=== PATIENT | female | born 1975 | race Hispanic/Latino ===

== ENCOUNTER 2019-03-17 22:01 | Emergency (ER) | payer OTHER ==
[~2019-03-17] VITALS: Ht 152.4 cm; Wt 74.8 kg
--- OUTSIDE RECORDS SUMMARY | 2019-03-17 22:04 | XMS REPORT ---
Author Author [facility] Address Unknown Phone Unavailable Care Team Providers Care Career Orientation Teacher Name Role Phone Unavailable Unavailable Payers Payer Name Policy Type Policy Number Effective Date Expiration Date Problems This patient has no known problems. Allergies, Adverse Reactions, Alerts Allergy Name Allergy Type Status Severity Reaction(s) Onset Date Inactive Date Treating Clinician Comments No Known Allergies DA Active U 2019-03-06 00:00:00 No Known Allergies DA Active U 2019-02-15 00:00:00 No Known Allergies DA Active U 2019-01-16 00:00:00 No Known Allergies DA Active U 2018-11-24 00:00:00 No Known Allergies DA Active U 2018-10-24 00:00:00 No Known Allergies DA Active U 2018-10-21 00:00:00 No Known Allergies DA Active U 2017-05-13 00:00:00 Medications This patient has no known medications. Results Test Description Test Time Test Comments Text Results Atomic Results Result Comments BASIC METABOLIC PANEL 2019-03-13 04:27:00 SODIUM (test code=NA) 141 mEq/L 134-147 POTASSIUM (test code=K) 3.2 mEq/L 3.4-5.0 CHLORIDE (test code=CL) 109 mEq/L 100-108 CARBON DIOXIDE (test code=CO2) 26 mEq/L 21-33 ANION GAP (test code=GAP) 9 0-20 GLUCOSE (test code=GLU) 79 mg/dL 70-110 BLOOD UREA NITROGEN (test code=BUN) 4 mg/dL 7-18 GLOMERULAR FILTRATION RATE (test code=GFR) 134.7 95-105 Units of measure=ml/min/1.73 m2 CREATININE (test code=CREAT) 0.5 mg/dL 0.6-1.3 CALCIUM (test code=CA) 7.6 mg/dL 8.0-10.5 CBC W/AUTO [id number] 04:08:00* Test Item Value Reference Range Comments WHITE BLOOD CELL (test code=WBC) 3.76 x10 3/uL 4.5-11.0 RED BLOOD CELL (test code=RBC) 3.17 x10 6/uL 3.54-5.02 HEMOGLOBIN (test code=HGB) 8.2 g/dL 11.0-15.0 HEMATOCRIT (test code=HCT) 26.0 % 33.0-45.0 MEAN CELL VOLUME (test code=MCV) 82.0 fL 81.0-99.0 MEAN CELL HGB (test code=MCH) 25.9 pg 27.0-33.0 MEAN CELL HGB CONCETRATION (test code=MCHC) 31.5 g/dL 33.0-37.0 RED CELL DISTRIBUTION WIDTH CV (test code=RDW) 16.2 % 11.5-14.5 RED CELL DISTRIBUTION WIDTH SD (test code=RDW-SD) 49.1 fL 37.0-54.0 PLATELET COUNT (test code=PLT) 372 x10 3/uL 150-400 MEAN PLATELET VOLUME (test code=MPV) 9.5 fL 7.0-9.0 NEUTROPHIL % (test code=NT%) 62.0 % 56.0-77.0 IMMATURE GRANULOCYTE % (test code=IG%) 0.5 % 0.0-2.0 LYMPHOCYTE % (test code=LY%) 24.2 % 14.0-32.0 MONOCYTE % (test code=MO%) 6.4 % 4.8-9.0 EOSINOPHIL % (test code=EO%) 6.6 % 0.3-3.7 BASOPHIL % (test code=BA%) 0.3 % 0.0-2.0 NUCLEATED RBC % (test code=NRBC%) 0.0 % 0-0 NEUTROPHIL # (test code=NT#) 2.33 x10 3/uL 2.0-7.6 IMMATURE GRANULOCYTE # (test code=IG#) 0.02 x10 3/uL 0.00-0.03 LYMPHOCYTE # (test code=LY#) 0.91 x10 3/uL 1.0-3.8 MONOCYTE # (test code=MO#) 0.24 x10 3/uL 0.1-0.8 EOSINOPHIL # (test code=EO#) 0.25 x10 3/uL 0.0-0.2 BASOPHIL # (test code=BA#) 0.01 x10 3/uL 0.0-0.2 NUCLEATED RBC # (test code=NRBC#) 0.00 x10 3/uL 0.0-0.1 MANUAL DIFF REQUIRED (test code=MDIFF) NO BASIC METABOLIC [id number] 07:43:00* Test Item Value Reference Range Comments SODIUM (test code=NA) 140 mEq/L 134-147 POTASSIUM (test code=K) 3.5 mEq/L 3.4-5.0 CHLORIDE (test code=CL) 109 mEq/L 100-108 CARBON DIOXIDE (test code=CO2) 25 mEq/L 21-33 ANION GAP (test code=GAP) 10 0-20 GLUCOSE (test code=GLU) 77 mg/dL 70-110 BLOOD UREA NITROGEN (test code=BUN) 5 mg/dL 7-18 GLOMERULAR FILTRATION RATE (test code=GFR) 134.7 95-105 Units of measure=ml/min/1.73 m2 CREATININE (test code=CREAT) 0.5 mg/dL 0.6-1.3 CALCIUM (test code=CA) 7.7 mg/dL 8.0-10.5 CBC W/AUTO [id number] 07:27:00* Test Item Value Reference Range Comments WHITE BLOOD CELL (test code=WBC) 4.22 x10 3/uL 4.5-11.0 RED BLOOD CELL (test code=RBC) 3.34 x10 6/uL 3.54-5.02 HEMOGLOBIN (test code=HGB) 8.9 g/dL 11.0-15.0 HEMATOCRIT (test code=HCT) 27.8 % 33.0-45.0 MEAN CELL VOLUME (test code=MCV) 83.2 fL 81.0-99.0 MEAN CELL HGB (test code=MCH) 26.6 pg 27.0-33.0 MEAN CELL HGB CONCETRATION (test code=MCHC) 32.0 g/dL 33.0-37.0 RED CELL DISTRIBUTION WIDTH CV (test code=RDW) 16.7 % 11.5-14.5 RED CELL DISTRIBUTION WIDTH SD (test code=RDW-SD) 50.0 fL 37.0-54.0 PLATELET COUNT (test code=PLT) 436 x10 3/uL 150-400 MEAN PLATELET VOLUME (test code=MPV) 10.1 fL 7.0-9.0 NEUTROPHIL % (test code=NT%) 56.4 % 56.0-77.0 IMMATURE GRANULOCYTE % (test code=IG%) 0.7 % 0.0-2.0 LYMPHOCYTE % (test code=LY%) 30.6 % 14.0-32.0 MONOCYTE % (test code=MO%) 5.0 % 4.8-9.0 EOSINOPHIL % (test code=EO%) 7.1 % 0.3-3.7 BASOPHIL % (test code=BA%) 0.2 % 0.0-2.0 NUCLEATED RBC % (test code=NRBC%) 0.0 % 0-0 NEUTROPHIL # (test code=NT#) 2.38 x10 3/uL 2.0-7.6 IMMATURE GRANULOCYTE # (test code=IG#) 0.03 x10 3/uL 0.00-0.03 LYMPHOCYTE # (test code=LY#) 1.29 x10 3/uL 1.0-3.8 MONOCYTE # (test code=MO#) 0.21 x10 3/uL 0.1-0.8 EOSINOPHIL # (test code=EO#) 0.30 x10 3/uL 0.0-0.2 BASOPHIL # (test code=BA#) 0.01 x10 3/uL 0.0-0.2 NUCLEATED RBC # (test code=NRBC#) 0.00 x10 3/uL 0.0-0.1 MANUAL DIFF REQUIRED (test code=MDIFF) NO - CT ABD PELVIS [id number] 18:26:00 Name: WALLACE GLORIA [facility] : 1975 Age/S: 43 / F [address] [place] [address] Unit #: [id number] Loc: [place] [address] Phys: Sierra Tomas RECORD SEARCHER Acct: [id number] Dis Date: Status: ADM IN PHONE #: [phone] Exam Date: 03/11/2019 173 FAX #: [phone] Reason: SEVERE ABD PAIN EXAMS: CPT CODE: [id number] CT ABD PELVIS W/CONT 68251 CT ABDOMEN AND PELVIS WITH CONTRAST INDICATION: Severe abdominal pain, pyelonephritis. TECHNIQUE: 100 mL Isovue- 300 Intravenous contrast was administered followed by CT imaging of the abdomen and pelvis with axial, coronal and sagittal reconstructions. Radiation DLP 537 mGy-cm. COMPARISONS: CT abdomen pelvis 03/06/2019, 01/16/2019, 02/21/2018 FINDINGS: There is no acute osseous fracture or dislocation. There is no organized fluid collection or mass in the soft tissues. There are nonspecific bilateral inguinal lymph nodes, the largest measures 3 x 1.3 cm in the left groin. The aorta reveals no aneurysm or acute process. The inferior vena cava reveals no acute process. The lung bases reveal no acute process. There is no acute hepatic process. There is hypodensity in the left hepatic lobe near the falciform ligament. This could be due to focal fatty infiltration or 3rd inflow differential perfusion. There is no suspicious hepatic mass. The gallbladder is montse gically absent. The pancreas reveals no acute process. The spleen reveals no acute process. The adrenal glands reveal no acute process or mass. There is a 7 mm nonobstructing right carolyn al calculus. There is no evidence of pyelonephritis or hydronephrosis. The urinary bladder reveals no acute process. There is no acute reproductive structure abnormality. There are surgical clips of the fal lopian tubes. There is no intra-abdominal free fluid. There is no lymphadenopathy. There is no intra-abdominal free gas. There are nondilated fluid levels in the colon suggesting diarrhea. PAGE 1 Signed Report (CONTINUED) Name: WALLACE GLORIA [facility] : 1975 Age/ S: 43 / F [address] [place] [address] Unit #: [id number] Loc: [place] [address] Phys: Sierra Tomas RECORD SEARCHER Acct: [id number] Dis Date: Status: ADM IN PHONE #: [phone] Exam Date: 03/11/2019 1730 FAX #: [phone] Reason: SEVERE ABD PAIN EXAMS: CPT CODE: [id number] CT ABD PELVIS W/CONT 47354 <Continued> There is no bowel perforation or bowel obstruction. The appendix is surgically absent. IMPRESSION: 1. There are nondilated fluid levels in the colon suggesting diarrhea. There is no bowel perforation or bowel obstruction. 2. There is a 7 mm nonobstructing right renal calculus. There is no evidence of pyelonephritis or hydronephrosis. 3. There are nonspecific mildly prominent inguinal lymph nodes, the largest measures 3 x 1.3 cm in the left groin. These are increased compared to 2018. These are likely reactive but a lymphoproliferative process is not entirely excluded. at 1826 Reported and signed by: Aayush Carrizales D.O. CC: Sierra Tomas NP; Dakotah Curiel MD; Sudarshan Barron III, MD Technologist:Malachi Lorenzo RT(R)(CT) CTDI: DLP: Trnscb Date/Time: 03/11/2019 (1825) [email or web address] Orig Print D/T: S: 03/11/2019 (1828) PAGE 2 Signed Report HEPATIC FUNCTION [id number] 16:40:00* Test Item Value Reference Range Comments TOTAL PROTEIN (test code=PROT) 6.5 g/dL 6.4-8.2 ALBUMIN (test code=ALB) 2.30 g/dL 3.4-5.0 BILIRUBIN TOTAL (test code=BILT) 0.30 mg/dL 0.0-1.0 BILIRUBIN DIRECT (test code=BILD) < 0.10 MG/DL 0.0-0.30 BILIRUBIN INDIRECT (test code=BILIND) 0.20 MG/DL SGOT/AST (test code=AST) 43 IUnit/L 15-37 SGPT/ALT (test code=ALT) 41 IUnit/L 15-65 ALKALINE PHOSPHATASE TOTAL (test code=ALKP) 193 IUnit/L 20-125 BASIC METABOLIC [id number] 08:49:00* Test Item Value Reference Range Comments SODIUM (test code=NA) 139 mEq/L 134-147 POTASSIUM (test code=K) 3.8 mEq/L 3.4-5.0 CHLORIDE (test code=CL) 110 mEq/L 100-108 CARBON DIOXIDE (test code=CO2) 22 mEq/L 21-33 ANION GAP (test code=GAP) 11 0-20 GLUCOSE (test code=GLU) 77 mg/dL 70-110 BLOOD UREA NITROGEN (test code=BUN) 5 mg/dL 7-18 GLOMERULAR FILTRATION RATE (test code=GFR) 109.1 95-105 Units of measure=ml/min/1.73 m2 CREATININE (test code=CREAT) 0.6 mg/dL 0.6-1.3 CALCIUM (test code=CA) 7.9 mg/dL 8.0-10.5 HGB [id number] 07:11:00* Test Item Value Reference Range Comments HEMOGLOBIN (test code=HGB) 8.8 g/dL 11.0-15.0 HEMATOCRIT (test code=HCT) 28.2 % 33.0-45.0 CBC W/AUTO [id number] 06:19:00* Test Item Value Reference Range Comments WHITE BLOOD CELL (test code=WBC) 6.55 x10 3/uL 4.5-11.0 RED BLOOD CELL (test code=RBC) 2.12 x10 6/uL 3.54-5.02 HEMOGLOBIN (test code=HGB) 5.6 g/dL 11.0-15.0 HEMATOCRIT (test code=HCT) 17.7 % 33.0-45.0 MEAN CELL VOLUME (test code=MCV) 83.5 fL 81.0-99.0 MEAN CELL HGB (test code=MCH) 26.4 pg 27.0-33.0 MEAN CELL HGB CONCETRATION (test code=MCHC) 31.6 g/dL 33.0-37.0 RED CELL DISTRIBUTION WIDTH CV (test code=RDW) 16.8 % 11.5-14.5 RED CELL DISTRIBUTION WIDTH SD (test code=RDW-SD) 51.3 fL 37.0-54.0 PLATELET COUNT (test code=PLT) 443 x10 3/uL 150-400 MEAN PLATELET VOLUME (test code=MPV) 9.8 fL 7.0-9.0 NEUTROPHIL % (test code=NT%) 64.8 % 56.0-77.0 IMMATURE GRANULOCYTE % (test code=IG%) 0.5 % 0.0-2.0 LYMPHOCYTE % (test code=LY%) 22.6 % 14.0-32.0 MONOCYTE % (test code=MO%) 5.5 % 4.8-9.0 EOSINOPHIL % (test code=EO%) 6.3 % 0.3-3.7 BASOPHIL % (test code=BA%) 0.3 % 0.0-2.0 NUCLEATED RBC % (test code=NRBC%) 0.0 % 0-0 NEUTROPHIL # (test code=NT#) 4.25 x10 3/uL 2.0-7.6 IMMATURE GRANULOCYTE # (test code=IG#) 0.03 x10 3/uL 0.00-0.03 LYMPHOCYTE # (test code=LY#) 1.48 x10 3/uL 1.0-3.8 MONOCYTE # (test code=MO#) 0.36 x10 3/uL 0.1-0.8 EOSINOPHIL # (test code=EO#) 0.41 x10 3/uL 0.0-0.2 BASOPHIL # (test code=BA#) 0.02 x10 3/uL 0.0-0.2 NUCLEATED RBC # (test code=NRBC#) 0.00 x10 3/uL 0.0-0.1 MANUAL DIFF REQUIRED (test code=MDIFF) NO - DUP VEIN UNI/[id number] 13:36:00 Name: WALLACE GLORIA [facility] : 1975 Age/S: 43 / F [address] [place] [address] Unit #: [id number] Loc: [place] [address] Phys: Blaze Velásquez MD Acct: [id number] Dis Date: Status: ADM IN PHONE #: [phone] Exam Date: 03/10/2019 1253 FAX #: [phone] Reason: EDEMA EXAMS: CPT CODE: [id number] DUP VEIN UNI/LTD 47294 Patient Name: WALLACE GLORIA : 1975; Age: 43 years y/o Female MR: [id number] Study: - DUP VEIN UNI/LTD 03/10/2019 2:20 PM Ordering Physician: Blaze Velásquez MD Clinical Indication: EDEMA Comparison: None FINDINGS: Compression duplex ultrasound of the right upper extremity was performed from the subclavicular region through the antecubital fossa. The ipsilateral right internal jugular vein was also evaluated. The visualized right upper extremity veins are patent and compressible without evidence of intraluminal thrombus. Satisfactory spontaneous and augmented flow is demonstrated in the visualized segments. The ulnar vein is not well seen. IMPRESSION: Negative right upper extremity venous Doppler without evidence of deep vein thrombosis. SL: [id number] at 1336 Reported and signed by: Nino Cervantes M.D. CC: Blaze Velásquez MD; Cristian Schaefer NP; Dakotah Curiel MD; Sudarshan Barron III, MD Technologist: Linda Perdue RDMS(O B)(AB) Trnscb Date/Time: 03/10/2019 (1520) [email or web address] Orig Print D/T: S: 03/10/2019 (2723) Probe: PAGE 1 Signed Report - DUP VEIN [id number] 13:31:00 Name: WALLACE GLORIA [facility] : 1975 Age/S: 43 / F [address] [place] [address] Unit #: [id number] Loc: [place] [address] Phys: Nahomy Troy NP Acct: [id number] Dis Date: Status: ADM IN PHONE #: [phone] Exam Date: 03/10/2019 1253 FAX #: [phone] Reason: recent surgery, sob EXAMS: CPT CODE: [id number] DUP VEIN CHASITY 00248 EXAMINATION: Bilateral lower extremity venous Doppler March 10, 2019. CLINICAL HISTORY: Recent surgery, shortness of breath. COMPARISON: None FINDINGS: Sonographic evaluation of the bilateral lower extremities was performed from the common femoral vein through the popliteal vein using grayscale, color Doppler, and spectral analysis. The examination demonstrates normal compressibility, flow, respiratory variation, and response to augmentation throughout. Visualized posterior tibial calf veins appear normal. IMPRESSION: No sonographic evidence of deep venous thrombosis in either thigh. at 1331 Reported and signed by: Rad Carrero M.D. CC: Dakotah Curiel MD; Sudarshan Barron III, MD; Nahomy Troy NP Technologist: Linda Perdue RDMS(OB)(AB) Trnscb Date/Time: 03/10/2019 (1331) Fani Orig Print D/T: S: 03/10/2019 (8947) Probe: PAGE 1 Signed Report - DUP EXTRACRANIAL CHASITY 2019-03-10 13:27:00 Name: WALLACE GLORIA [facility] : 1975 Age/S: 43 / F [address] [place] [address] Blvd Unit #: [id number] Loc: [place] [address] Phys: Sierra Tomas NP Acct: [id number] Dis Date: Status: ADM IN PHONE #: [phone] Exam Date: 03/10/2019 1253 FAX #: [phone] Reason: r/o carotid stenosis pt with dizziness EXAMS: CPT CODE: [id number] DUP EXTRACRANIAL CHASITY 39553 STUDY: - DUP EXTRACRANIAL CHASITY 03/10/2019 10:44 AM Ordering Physician: Sierra Tomas NP Patient Name: AWLLACE GLORIA MR: [id number] : 1975; Age: 43 years y/o Female Clinical Indication: r/o carotid stenosis pt with dizziness Comparison: None TECHNIQUE: [place]-scale, color Doppler and spectral Doppler of the carotid arteries was performed. Any reported ICA stenoses indirectly reference the distal internal carotid diameter as the denominator for the stenosis measurement, utilizing consensus panel criteria. FINDINGS: RIGHT CAROTID Grayscale images:Mild plaque ICA PSV: 82.7 cm/sec CCA PSV: 94.3 cm/sec ICA/CCA PSV RATIO:0.9 Vertebral flow: Antegrade. External carotid: Patent. LEFT CAROTID SYSTEM Grayscale images: Mild plaque ICA PSV: 112.5 cm/sec CCA PSV: 130.8 cm/sec ICA/CCA PSV RATIO:1.0 Vertebral flow: Antegrade. External carotid: Patent. IMPRESSION: RIGHT: ICA stenosis <50% by velocity criteria. LEFT: ICA stenosis <50% by velocity criteria. PAGE 1 Signed Report (CONTINUED) Name: WALLACE GLORIA [facility] : 1975 Age/S: 43 / F [address] [facility] Unit #: [id number] [place]: [place] [address] Phys: Sierra Tomas NP Acct: [id number] Dis Date: Status: ADM IN PHONE #: [phone] Exam Date: 03/10/2019 1253 FAX #: [phone] Reason: r/o carotid stenosis pt with dizziness EXAMS: CPT CODE: [id number] DUP EXTRACRANIAL CHASITY 16533 <Continued> Consensus panel Doppler US criteria for diagnosis of ICA stenosis: Stenosis (%) ICA PSV (cm/sec) ICA/CCA ratio ------ <50 <125 <2.0 50-69 125-230 2.0-4.0 >70 but less than >230 >4.0 near occlusion Near occlusion High, low, or Variable undetectable SL: [id number] at 1327 Reported and signed by: Nino Cervantes M.D. CC: Sierra Tomas NP; Dakotah Curiel MD; Sudarshan Barron III, MD Technologist: Linda Perdue RDMS(OB)(AB) Trnscb Date/Time: 03/10/2019 (1327) [id number] Orig Print D/T: S: 03/10/2019 (1088) Probe: PAGE 2 Signed Report - CTA CHEST FOR [id number] 19:18:00 Name: WALLACE GLORIA [facility] : 1975 Age/S: 43 / F [address] [facility] Unit #: [id number] Loc: [place] [address] Phys: Nahomy Troy RECORD SEARCHER Acct: [id number] Dis Date: Status: ADM IN PHONE #: [phone] Exam Date: 03/09/20191829 FAX #: [phone] Reason: sob, recent knee surgery EXAMS: CPT CODE: [id number] [place] [address] PROCEDURE: CTA CHEST INDICATION: Shortness of breath, recent knee surgery COMPARISON: None. TECHNIQUE: CTA of the pulmonary arteries was performed with 100 ml Isovue 300 intravenous contrast. Multiplanar and 3-D MIP angiographic reconstructions are reviewed. CT imaging performed at this location utilizes radiation dose optimization techniques which include one or more of the following: - Automated exposure control -Adjustment of the mA and/or kV according to patient size -Use of iterative reconstruction technique CT Radiation Dose DLP 694 mGy-cm FINDINGS: PULMONARY ARTERIES: Normal enhancement without intraluminal filling defect. MEDIASTINUM: The mediastinal contents are unremarkable. No adenopathy. HEART: The cardiac chambers are unremarkable. No pericardial effusion. No significant coronary artery calcification VASCULAR STRUCTURES: The thoracic aorta and great vessels are unremarkable. The superior vena cava is unremarkable. LUNGS: There is minimal linear atelectasis at the posterior right upper lobe. No acute lung infiltrate or pleural fluid. UPPER ABDOMEN: Survey of viscera may be limited by early phase of contrast enhancement. Previous cholecystectomy. No acute abnormality MUSCULOSKELETAL: The skeleton is intact. Prominent left axillary lymph node is 14 mm in short axis dimension dominant left axillary lymph node is 15 mm in diameter IMPRESSION: 1. No CT evidence for pulmonary embolus. 2. Bilateral axillary adenopathy is nonspecific in etiology by CT. PAGE 1 Signed Report (CONTINUED) [facility] 1975 Age[facility]S: 43 / F [address] [place] [address] Unit #: [id number] Loc: [place] [address] Phys : Nahomy Troy RECORD SEARCHER Acct: [id number] Dis Date: Status: ADM IN PHONE #: [phone] Exam Date: 03/09/2019 183 FAX #: [phone] Reason: sob, recent knee surgery EXAMS: CPT CODE: [id number] [place] [address] <Continued> SL: SO at 1918 Reported and signed by: Raman oLuis M.D. CC: Dakotah Curiel MD; Sudarshan Barron III, MD; Nahomy Troy NP Technologist:Yariel Corcoran, RT(R)(CT) CTDI: DLP: Trnscb Date/Time: 03/09/2019 (1917) Richie Orig Print D/T: S: 03/09/2019 (1920) PAGE 2 Signed Report CBC W/AUTO [id number] 14:33:00* Test Item Value Reference Range Comments WHITE BLOOD CELL (test code=WBC) 5.04 x10 3/uL 4.5-11.0 RED BLOOD CELL (test code=RBC) 3.36 x10 6/uL 3.54-5.02 HEMOGLOBIN (test code=HGB) 8.9 g/dL 11.0-15.0 HEMATOCRIT (test code=HCT) 27.7 % 33.0-45.0 MEAN CELL VOLUME (test code=MCV) 82.4 fL 81.0-99.0 MEAN CELL HGB (test code=MCH) 26.5 pg 27.0-33.0 MEAN CELL HGB CONCETRATION (test code=MCHC) 32.1 g/dL 33.0-37.0 RED CELL DISTRIBUTION WIDTH CV (test code=RDW) 16.5 % 11.5-14.5 RED CELL DISTRIBUTION WIDTH SD (test code=RDW-SD) 49.3 fL 37.0-54.0 PLATELET COUNT (test code=PLT) 427 x10 3/uL 150-400 MEAN PLATELET VOLUME (test code=MPV) 9.8 fL 7.0-9.0 NEUTROPHIL % (test code=NT%) 71.0 % 56.0-77.0 IMMATURE GRANULOCYTE % (test code=IG%) 0.6 % 0.0-2.0 LYMPHOCYTE % (test code=LY%) 20.2 % 14.0-32.0 MONOCYTE % (test code=MO%) 3.0 % 4.8-9.0 EOSINOPHIL % (test code=EO%) 5.0 % 0.3-3.7 BASOPHIL % (test code=BA%) 0.2 % 0.0-2.0 NUCLEATED RBC % (test code=NRBC%) 0.0 % 0-0 NEUTROPHIL # (test code=NT#) 3.58 x10 3/uL 2.0-7.6 IMMATURE GRANULOCYTE # (test code=IG#) 0.03 x10 3/uL 0.00-0.03 LYMPHOCYTE # (test code=LY#) 1.02 x10 3/uL 1.0-3.8 MONOCYTE # (test code=MO#) 0.15 x10 3/uL 0.1-0.8 EOSINOPHIL # (test code=EO#) 0.25 x10 3/uL 0.0-0.2 BASOPHIL # (test code=BA#) 0.01 x10 3/uL 0.0-0.2 NUCLEATED RBC # (test code=NRBC#) 0.00 x10 3/uL 0.0-0.1 MANUAL DIFF REQUIRED (test code=MDIFF) NO SLIDE REVIEWED, CONSISTENT WITH AUTO DIFF. [id number] 14:05:00* Test Item Value Reference Range Comments D-DIMER (test code=DDIMER) 5578 ng/mlFEU <=500 THROMBOSIS AND/OR PULMONARY EMBOLISM AND THE CLINICAL CUT- OFF VALUE FOR EXCLUSION (500 ng/mL FEU) OF THESE CONDITIONSIS VALIDATED BY THE BIOMEDICAL ENGINEERING SUPERVISOR OF THE METHOD. A NEGATIVE D-DIMER RESULT WHEN COMBINED WITH A CLINICALASSESSMENT OF LOW PRETEST PROBABILITY HAS BEEN SHOWN TO HAVEA HIGH NEGATIVE PREDICTIVE VALUE OF DVT OR PE. D-DIMER VALUES >500 ng/mL FEU ARE NOT DIAGNOSTIC FOR DVT, PEor DIC WITHOUT OTHER CONFIRMATORY TESTS AND APPROPRIATECLINICAL EUALUATIONS. BASIC METABOLIC [id number] 13:43:00* Test Item Value Reference Range Comments SODIUM (test code=NA) 138 mEq/L 134-147 POTASSIUM (test code=K) 3.0 mEq/L 3.4-5.0 CHLORIDE (test code=CL) 107 mEq/L 100-108 CARBON DIOXIDE (test code=CO2) 23 mEq/L 21-33 ANION GAP (test code=GAP) 11 0-20 GLUCOSE (test code=GLU) 92 mg/dL 70-110 BLOOD UREA NITROGEN (test code=BUN) 4 mg/dL 7-18 GLOMERULAR FILTRATION RATE (test code=GFR) 109.1 95-105 Units of measure=ml/min/1.73 m2 CREATININE (test code=CREAT) 0.6 mg/dL 0.6-1.3 CALCIUM (test code=CA) 7.6 mg/dL 8.0-10.5 [id number] 13:43:00* Test Item Value Reference Range Comments TROPONIN-I (test code=TROPI) < 0.015 ng/mL 0.000-0.045 Negative: <=0.045 Positive: >=0.046 Correlation with serial results, other cardiac markers andclinical findings is necessary to determine the clinicalsignificance of this result. Results using different methodologies should not be comparedto one another as quantitative results may vary by method. CBC W/AUTO [id number] 13:42:00* Test Item Value Reference Range Comments WHITE BLOOD CELL (test code=WBC) 5.04 x10 3/uL 4.5-11.0 RED BLOOD CELL (test code=RBC) 3.36 x10 6/uL 3.54-5.02 HEMOGLOBIN (test code=HGB) 8.9 g/dL 11.0-15.0 HEMATOCRIT (test code=HCT) 27.7 % 33.0-45.0 MEAN CELL VOLUME (test code=MCV) 82.4 fL 81.0-99.0 MEAN CELL HGB (test code=MCH) 26.5 pg 27.0-33.0 MEAN CELL HGB CONCETRATION (test code=MCHC) 32.1 g/dL 33.0-37.0 RED CELL DISTRIBUTION WIDTH CV (test code=RDW) 16.5 % 11.5-14.5 RED CELL DISTRIBUTION WIDTH SD (test code=RDW-SD) 49.3 fL 37.0-54.0 PLATELET COUNT (test code=PLT) 427 x10 3/uL 150-400 MEAN PLATELET VOLUME (test code=MPV) 9.8 fL 7.0-9.0 LYMPHOCYTE % (test code=LY%) % 14.0-32.0 MANUAL DIFF REQUIRED (test code=MDIFF) - XR CHEST 1 [id number] 11:36:00 FAX: Sierra Tomas NP [phone] [place]: St: ADM FAX: Dakotah Jung I [phone] FAX: Sudarshan Narayanan III [phone] Name: [facility] : 1975 Age/S: 43/F [address] [place] [address] Unit #: [id number] [facility] [place] [address] Phys: Sierra Tomas NP Acct: [id number] Dis Date: Status: ADM IN ONE #: [phone] Exam Date: 03/09/2019 1133 FAX #: [phone] Reason: cough/fever EXAMS: CPT CODE: [id number] XR CHEST 1 V [id number] CHEST 1 VIEW: 03/09/2019 COMPARISON: February 15, 2019 CLINICAL HISTORY: cough/fever FINDINGS: The cardiovascular silhouette is normal in s ize. No infiltrates or pulmonary edema is present. There is no pneumothorax. Surgical clips noted in the right upper quadrant of the abdomen. IMPRESSION: No acute pulmonary disease. Electronically Signed by Anthony Red on at 113 Reported and signed by: Malachi Camacho CC: Sierra Tomas NP; Dakotah Curiel MD; Sudarshan Barron III, MD Technologist: RT Joelle(R) Trnscrd Date/Time/By: 03/09/2019 (0037) : By: [email or web address] Orig Print D/T: S: ([id number]) PAGE 1 Signed Rep ort COMPREHENSIVE METABOLIC [id number] 22:05:00* Test Item Value Reference Range Comments SODIUM (test code=NA) 134 mEq/L 134-147 POTASSIUM (test code=K) 3.9 mEq/L 3.4-5.0 CHLORIDE (test code=CL) 101 mEq/L 100-108 CARBON DIOXIDE (test code=CO2) 22 mEq/L 21-33 ANION GAP (test code=GAP) 15 0-20 GLUCOSE (test code=GLU) 63 mg/dL 70-110 BLOOD UREA NITROGEN (test code=BUN) 11 mg/dL 7-18 GLOMERULAR FILTRATION RATE (test code=GFR) 109.1 95-105 Units of measure=ml/min/1.73 m2 CREATININE (test code=CREAT) 0.6 mg/dL 0.6-1.3 TOTAL PROTEIN (test code=PROT) 9.4 g/dL 6.4-8.2 ALBUMIN (test code=ALB) 3.60 g/dL 3.4-5.0 CALCIUM (test code=CA) 9.3 mg/dL 8.0-10.5 BILIRUBIN TOTAL (test code=BILT) 0.40 mg/dL 0.0-1.0 SGOT/AST (test code=AST) 48 IUnit/L 15-37 SGPT/ALT (test code=ALT) 28 IUnit/L 15-65 ALKALINE PHOSPHATASE TOTAL (test code=ALKP) 157 IUnit/L 20-125 [id number] 22:05:00* Test Item Value Reference Range Comments LIPASE (test code=LIP) 362 IUnit/L 73-393 COMPREHENSIVE METABOLIC [id number] 22:03:00* Test Item Value Reference Range Comments SODIUM (test code=NA) 134 mEq/L 134-147 POTASSIUM (test code=K) 3.9 mEq/L 3.4-5.0 CHLORIDE (test code=CL) 101 mEq/L 100-108 CARBON DIOXIDE (test code=CO2) 22 mEq/L 21-33 ANION GAP (test code=GAP) 15 0-20 GLUCOSE (test code=GLU) 63 mg/dL 70-110 BLOOD UREA NITROGEN (test code=BUN) 11 mg/dL 7-18 GLOMERULAR FILTRATION RATE (test code=GFR) 109.1 95-105 Units of measure=ml/min/1.73 m2 CREATININE (test code=CREAT) 0.6 mg/dL 0.6-1.3 TOTAL PROTEIN (test code=PROT) g/dL 6.4-8.2 ALBUMIN (test code=ALB) 3.60 g/dL 3.4-5.0 CALCIUM (test code=CA) 9.3 mg/dL 8.0-10.5 BILIRUBIN TOTAL (test code=BILT) mg/dL 0.0-1.0 SGOT/AST (test code=AST) 48 IUnit/L 15-37 SGPT/ALT (test code=ALT) 28 IUnit/L 15-65 ALKALINE PHOSPHATASE TOTAL (test code=ALKP) IUnit/L 20-125 [id number] 22:03:00* Test Item Value Reference Range Comments LIPASE (test code=LIP) 362 IUnit/L 73-393 URINALYSIS [id number] 22:00:00* Test Item Value Reference Range Comments UA COLOR (test code=COLU) YELLOW YEL/STRAW UA APPEARANCE (test code=APPU) SL CLOUDY CLEAR UA GLUCOSE DIPSTICK (test code=DGLUU) NEGATIVE NEGATIVE UA BILIRUBIN DIPSTICK (test code=BILU) NEGATIVE NEGATIVE UA KETONE DIPSTICK (test code=KETU) 2+ NEGATIVE UA SPECIFIC GRAVITY (test code=SGU) 1.019 1.005-1.030 UA BLOOD DIPSTICK (test code=MARIAM) NEGATIVE NEGATIVE UA PH DIPSTICK (test code=DANITZA) 6.0 5.0-7.0 UA PROTEIN DIPSTICK (test code=PROU) NEGATIVE NEGATIVE UA UROBILINIOGEN DIPSTICK (test code=URO) 0.2 mg/dL 0.2-1.0 UA NITRITE DIPSTICK (test code=SHARRON) NEGATIVE NEGATIVE UA LEUKOCYTE ESTERASE DIPSTICK (test code=LEUU) 2+ NEGATIVE UA WBC (test code=WBCU) 21-50 WBC/HPF 0-3 UA RBC (test code=RBCU) 0-3 RBC/HPF 0-3 UA BACTERIA (test code=BACU) 1+ /HPF NONE SEEN UA SQUAMOUS CELLS (test code=SQU) 6-10 /HPF NONE SEEN UA HYALINE CAST (test code=HYALU) 3-5 /LPF NONE SEEN UA MUCUS (test code=MUCU) 1+ /LPF NONE SEEN COMMENTS: Clean CatchCBC W/AUTO [id number] 21:54:00* Test Item Value Reference Range Comments WHITE BLOOD CELL (test code=WBC) 5.03 x10 3/uL 4.5-11.0 RED BLOOD CELL (test code=RBC) 4.15 x10 6/uL 3.54-5.02 HEMOGLOBIN (test code=HGB) 10.9 g/dL 11.0-15.0 HEMATOCRIT (test code=HCT) 34.7 % 33.0-45.0 MEAN CELL VOLUME (test code=MCV) 83.6 fL 81.0-99.0 MEAN CELL HGB (test code=MCH) 26.3 pg 27.0-33.0 MEAN CELL HGB CONCETRATION (test code=MCHC) 31.4 g/dL 33.0-37.0 RED CELL DISTRIBUTION WIDTH CV (test code=RDW) 16.1 % 11.5-14.5 RED CELL DISTRIBUTION WIDTH SD (test code=RDW-SD) 48.3 fL 37.0-54.0 PLATELET COUNT (test code=PLT) 544 x10 3/uL 150-400 MEAN PLATELET VOLUME (test code=MPV) 9.3 fL 7.0-9.0 NEUTROPHIL % (test code=NT%) 68.9 % 56.0-77.0 IMMATURE GRANULOCYTE % (test code=IG%) 0.6 % 0.0-2.0 LYMPHOCYTE % (test code=LY%) 22.5 % 14.0-32.0 MONOCYTE % (test code=MO%) 5.2 % 4.8-9.0 EOSINOPHIL % (test code=EO%) 2.4 % 0.3-3.7 BASOPHIL % (test code=BA%) 0.4 % 0.0-2.0 NUCLEATED RBC % (test code=NRBC%) 0.0 % 0-0 NEUTROPHIL # (test code=NT#) 3.47 x10 3/uL 2.0-7.6 IMMATURE GRANULOCYTE # (test code=IG#) 0.03 x10 3/uL 0.00-0.03 LYMPHOCYTE # (test code=LY#) 1.13 x10 3/uL 1.0-3.8 MONOCYTE # (test code=MO#) 0.26 x10 3/uL 0.1-0.8 EOSINOPHIL # (test code=EO#) 0.12 x10 3/uL 0.0-0.2 BASOPHIL # (test code=BA#) 0.02 x10 3/uL 0.0-0.2 NUCLEATED RBC # (test code=NRBC#) 0.00 x10 3/uL 0.0-0.1 MANUAL DIFF REQUIRED (test code=MDIFF) NO - CT ABD PELVIS W/O [id number] 21:14:00 Name: [facility] : 1975 Age/S: 43 / F [address] [place] [address] Unit #: [id number] Loc: [place] [address] Phys: Abbi Mills MD Acct: [id number] Dis Date: Status: REG ER PHONE #: [phone] Exam Date: 03/06/20192057 FAX #: [phone] Reason: llq abd pain EXAMS: CPT CODE: [id number] CT ABD PELVIS W/O CONT 90766 CT abdomen pelvis without contrast: Multiplanar helical imaging acquired diaphragm to pubic symphysis without oral or IV contrast. CT imaging performed at this location utilizes radiation dose optimization techniques which include one or more of the following: -Automated exposure control -Adjustment of the mA and/or kV according to patient size -Use of iterative reconstruction technique CT Radiation Dose DLP 615 mGy-cm. COMPARISON: 01/16/2019. HISTORY: Left lower quadrant abdominal pain, nausea and vomiting, painful urination. FINDINGS: The lung bases are clear. The gallbladder has been removed. No focal lesion in the liver or spleen. Biliary ducts are not dilated. Gallbladder, adrenal glands and abdominal aorta unremarkable. Punctate 1 mm nonobstructing upper pole stone left kidney. 6 mm mid to upper pole stone right kidney. No hydronephrosis or perinephric inflammation on either side. No stone in either ureter. Tubal ligation clips are noted. Uterus and adnexal regions unremarkable. Large and small bowel loops are normal caliber without ob struction or inflammation. The appendix is normal. No ascites. No ventr al or inguinal hernia. Review on bone window shows no acute bony p athology. No vertebral compression. IMPRESSION: 1 . Bilateral nonobstructing nephrolithiasis. 2. Cholecystectomy, tubal ligation clips present. SL: EGСветланаH at 2114 Reported and signed by: Lance Barnhart M.D. PAGE 1 Signed Report (CONTINUED) Name: [facility] : 1975 Age/S: 43 / F [address] [place] [address] Unit #: [id number] Loc: [place] [address] Phys: Abbi Mills MD Acct: [id number] Dis Date: Status: REG ER PHONE #: [phone] Exam Date: 03/06/20192057 FAX #: [phone] Reason: llq abd pain EXAMS: CPT CODE: [id number] CT ABD PELVIS W/O CONT 74271 <Continued> CC: Abbi Milsl MD; Sudarshan Barron III, MD Technologist:Aisha Louis RT(R)(CT) CTDI: DLP: Trnscb Date/Time: 03/06/2019 (2113) t.SDR.ETG Orig Print D/T: S: 03/06/2019 (2116) PAGE 2 Signed Report CBC W/AUTO [id number] 08:17:00* Test Item Value Reference Range Comments WHITE BLOOD CELL (test code=WBC) 4.92 x10 3/uL 4.5-11.0 RED BLOOD CELL (test code=RBC) 3.18 x10 6/uL 3.54-5.02 HEMOGLOBIN (test code=HGB) 8.4 g/dL 11.0-15.0 HEMATOCRIT (test code=HCT) 26.9 % 33.0-45.0 MEAN CELL VOLUME (test code=MCV) 84.6 fL 81.0-99.0 MEAN CELL HGB (test code=MCH) 26.4 pg 27.0-33.0 MEAN CELL HGB CONCETRATION (test code=MCHC) 31.2 g/dL 33.0-37.0 RED CELL DISTRIBUTION WIDTH CV (test code=RDW) 15.8 % 11.5-14.5 RED CELL DISTRIBUTION WIDTH SD (test code=RDW-SD) 49.4 fL 37.0-54.0 PLATELET COUNT (test code=PLT) 337 x10 3/uL 150-400 MEAN PLATELET VOLUME (test code=MPV) 9.5 fL 7.0-9.0 NEUTROPHIL % (test code=NT%) 58.3 % 56.0-77.0 IMMATURE GRANULOCYTE % (test code=IG%) 0.6 % 0.0-2.0 LYMPHOCYTE % (test code=LY%) 29.7 % 14.0-32.0 MONOCYTE % (test code=MO%) 6.7 % 4.8-9.0 EOSINOPHIL % (test code=EO%) 4.3 % 0.3-3.7 BASOPHIL % (test code=BA%) 0.4 % 0.0-2.0 NUCLEATED RBC % (test code=NRBC%) 0.0 % 0-0 NEUTROPHIL # (test code=NT#) 2.87 x10 3/uL 2.0-7.6 IMMATURE GRANULOCYTE # (test code=IG#) 0.03 x10 3/uL 0.00-0.03 LYMPHOCYTE # (test code=LY#) 1.46 x10 3/uL 1.0-3.8 MONOCYTE # (test code=MO#) 0.33 x10 3/uL 0.1-0.8 EOSINOPHIL # (test code=EO#) 0.21 x10 3/uL 0.0-0.2 BASOPHIL # (test code=BA#) 0.02 x10 3/uL 0.0-0.2 NUCLEATED RBC # (test code=NRBC#) 0.00 x10 3/uL 0.0-0.1 MANUAL DIFF REQUIRED (test code=MDIFF) NO BASIC METABOLIC [id number] 07:36:00* Test Item Value Reference Range Comments SODIUM (test code=NA) 142 mEq/L 134-147 POTASSIUM (test code=K) 3.6 mEq/L 3.4-5.0 CHLORIDE (test code=CL) 110 mEq/L 100-108 CARBON DIOXIDE (test code=CO2) 27 mEq/L 21-33 ANION GAP (test code=GAP) 9 0-20 GLUCOSE (test code=GLU) 93 mg/dL 70-110 BLOOD UREA NITROGEN (test code=BUN) 8 mg/dL 7-18 GLOMERULAR FILTRATION RATE (test code=GFR) 134.7 95-105 Units of measure=ml/min/1.73 m2 CREATININE (test code=CREAT) 0.5 mg/dL 0.6-1.3 CALCIUM (test code=CA) 7.8 mg/dL 8.0-10.5 BASIC METABOLIC [id number] 08:03:00* Test Item Value Reference Range Comments SODIUM (test code=NA) 140 mEq/L 134-147 POTASSIUM (test code=K) 4.0 mEq/L 3.4-5.0 CHLORIDE (test code=CL) 108 mEq/L 100-108 CARBON DIOXIDE (test code=CO2) 25 mEq/L 21-33 ANION GAP (test code=GAP) 11 0-20 GLUCOSE (test code=GLU) 112 mg/dL 70-110 BLOOD UREA NITROGEN (test code=BUN) 11 mg/dL 7-18 GLOMERULAR FILTRATION RATE (test code=GFR) 109.1 95-105 Units of measure=ml/min/1.73 m2 CREATININE (test code=CREAT) 0.6 mg/dL 0.6-1.3 CALCIUM (test code=CA) 8.0 mg/dL 8.0-10.5 [id number] 08:03:00* Test Item Value Reference Range Comments MAGNESIUM (test code=MAG) 2.30 mg/dL 1.8-2.4 CBC W/AUTO [id number] 07:27:00* Test Item Value Reference Range Comments WHITE BLOOD CELL (test code=WBC) 5.57 x10 3/uL 4.5-11.0 RED BLOOD CELL (test code=RBC) 2.64 x10 6/uL 3.54-5.02 HEMOGLOBIN (test code=HGB) 6.8 g/dL 11.0-15.0 HEMATOCRIT (test code=HCT) 22.0 % 33.0-45.0 MEAN CELL VOLUME (test code=MCV) 83.3 fL 81.0-99.0 MEAN CELL HGB (test code=MCH) 25.8 pg 27.0-33.0 MEAN CELL HGB CONCETRATION (test code=MCHC) 30.9 g/dL 33.0-37.0 RED CELL DISTRIBUTION WIDTH CV (test code=RDW) 15.8 % 11.5-14.5 RED CELL DISTRIBUTION WIDTH SD (test code=RDW-SD) 48.3 fL 37.0-54.0 PLATELET COUNT (test code=PLT) 332 x10 3/uL 150-400 MEAN PLATELET VOLUME (test code=MPV) 10.1 fL 7.0-9.0 NEUTROPHIL % (test code=NT%) 78.2 % 56.0-77.0 IMMATURE GRANULOCYTE % (test code=IG%) 0.4 % 0.0-2.0 LYMPHOCYTE % (test code=LY%) 15.3 % 14.0-32.0 MONOCYTE % (test code=MO%) 5.7 % 4.8-9.0 EOSINOPHIL % (test code=EO%) 0.2 % 0.3-3.7 BASOPHIL % (test code=BA%) 0.2 % 0.0-2.0 NUCLEATED RBC % (test code=NRBC%) 0.0 % 0-0 NEUTROPHIL # (test code=NT#) 4.36 x10 3/uL 2.0-7.6 IMMATURE GRANULOCYTE # (test code=IG#) 0.02 x10 3/uL 0.00-0.03 LYMPHOCYTE # (test code=LY#) 0.85 x10 3/uL 1.0-3.8 MONOCYTE # (test code=MO#) 0.32 x10 3/uL 0.1-0.8 EOSINOPHIL # (test code=EO#) 0.01 x10 3/uL 0.0-0.2 BASOPHIL # (test code=BA#) 0.01 x10 3/uL 0.0-0.2 NUCLEATED RBC # (test code=NRBC#) 0.00 x10 3/uL 0.0-0.1 MANUAL DIFF REQUIRED (test code=MDIFF) NO - XR KNEE 1 OR 2 V [id number] 11:45:00 FAX: Buddy Whatley [phone] [place]: St: ADM FAX: Sudarshan Narayanan III [phone] FAX: Car Maddox [phone] Name: [facility] : 1975 Age/S: 43/F [address] [place] [address] Blvd Unit #: [id number] Loc: [place] [address] Phys: Car Morales Acct: [id number] Dis Date: Status: ADM IN PH ONE #: [phone] Exam Date: 02/17/2019 1145 FAX #: [phone] Reason: post op TKA EXAMS: CPT CODE: [id number] XR KNEE 1 [place] 2 [place] [address] LEFT KNEE 2 V IEWS 02/17/2019 COMPARISON: October 15, 2014 CLINICAL HISTORY: post op TKA FINDINGS: No acute fracture or dislocation is noted. A left knee prosthesis is present and is in anatomic ali gnment. Air is seen in the soft tissues due to the recent surgery . CONCLUSION: Status post changes of left knee arthroplasty. at 1145 Reported and signed by: Walter Red M.D. CC: Buddy Godinez MD; Sudarshan Barron III, MD; [facility] nain GOODWIN Technologist: Diana Richardson, RT(R) Trnscrd Date/Time/By: 2018 (9276) : By: [email or web address] Orig Print D/T: S: 02/17/2019 (7065) PAGE 1 Signed Report PROTHROMBIN [id number] 15:59:00* Test Item Value Reference Range Comments PROTHROMBIN TIME PATIENT (test code=PTP) 11.6 SECONDS 9.3-12.9 INTERNATIONAL NORMAL RATIO (test code=INR) 1.0 0.8-1.2 TARGET INR BY INDICATION Indication INR1. Prophylaxis of venous thrombosis 2.0 - 3.0 (orthopedic surgery), Prophylaxis of venous thrombosis (other than high-risk surgery), Treatment of Deep Vein Thrombosis/Pulmonary Embolism, Prevention of systemic embolism - Tissue heart valves, Acute Myocardial Infarction (to prevent systemic embolism), Valvular heart disease, Atrial Fibrillation, Bileaflet mechanical valve in aortic position.2. Mechanical prosthetic valves (high risk), 2.5 - 3.5 Presence of Lupus Anticoagulant or Antiphospholipid Antibodies, Prevention of systemic embolism - Acute Myocardial Infarction (to prevent recurrent infarct). THROMBOPLASTIN TIME [id number] 15:59:00* Test Item Value Reference Range Comments THROMBOPLASTIN TIME PARTIAL (test code=PTT) 31.1 Seconds 25.0-39.5 Therapeutic Range: 50.4 - 88.3 Seconds Effective 01/31/2019 - XR CHEST 2 [id number] 15:56:00 FAX: Buddy Whatley [phone] [place]: St: PRE FAX: Mehran Barron IIISudarshan [phone] FAX: Tamiko Wild Name: [facility] : 1975 Age/S: 43/F [address] [place], [place] [address]vd Unit #: [id number] Loc: [place] [address] Phys: Tamiko Wild RECORD SEARCHER Acct: [id number] Dis Date: Status: PRE IN PH ONE #: [phone] Exam Date: 02/15/2019 1545 FAX #: [phone] Reason: TKR EXAMS: CPT CODE: [id number] XR CHEST 2 V [id number] EXAM: XR CHEST 2 VIEWS DATE: 02/15/2019 2:33 PM : 1975; Age: 43 years y/o Female INDICATION: TKR COMPARISON: November 15, 2018 TECHNIQUE: PA and lateral chest radiographs. FINDING S: Lines, tubes and hardware: None. Lungs and pleura : The lungs are clear. No pleural effusion. Heart and mediastinum : The heart size is normal for technique. The mediastinal contours are nor mal. Pulmonary vascularity is normal. IMPRESSION: No acute cardiopulmonary process. SL: [id number] at 1556 Reported and signed by: Jonathan Simpson D.O. CC: Buddy vazquez MD; Sudarshan Barron III, MD; Tamiko Wild NP Technologist: Bethanie Rios RT(R)( M) Trnscrd Date/Time/By: 02/15/2019 (7480) : By: Therese [email or web address] Orig Print D/T: S: 02/15/2019 (4770) PAG E 1 Signed Report URINALYSIS [id number] 15:33:00* Test Item Value Reference Range Comments UA COLOR (test code=COLU) YELLOW YEL/STRAW UA APPEARANCE (test code=APPU) CLEAR CLEAR UA GLUCOSE DIPSTICK (test code=DGLUU) NEGATIVE NEGATIVE UA BILIRUBIN DIPSTICK (test code=BILU) NEGATIVE NEGATIVE UA KETONE DIPSTICK (test code=KETU) NEGATIVE NEGATIVE UA SPECIFIC GRAVITY (test code=SGU) 1.017 1.005-1.030 UA BLOOD DIPSTICK (test code=MARIAM) NEGATIVE NEGATIVE UA PH DIPSTICK (test code=DANITZA) 5.0 5.0-7.0 UA PROTEIN DIPSTICK (test code=PROU) NEGATIVE NEGATIVE UA UROBILINIOGEN DIPSTICK (test code=URO) 0.2 mg/dL 0.2-1.0 UA NITRITE DIPSTICK (test code=SHARRON) NEGATIVE NEGATIVE UA LEUKOCYTE ESTERASE DIPSTICK (test code=LEUU) NEGATIVE NEGATIVE UA WBC (test code=WBCU) 0-3 WBC/HPF 0-3 UA RBC (test code=RBCU) 0-3 RBC/HPF 0-3 UA BACTERIA (test code=BACU) NONE SEEN /HPF NONE SEEN UA SQUAMOUS CELLS (test code=SQU) 0-5 /HPF NONE SEEN UA MUCUS (test code=MUCU) TRACE /LPF NONE SEEN - CT HEAD/BRAIN W/O [id number] 23:38:00 Name: GLORIA,WALLACE [facility] : 1975 Age/S: 43 / F [address] Unit #: [id number] Loc: [place] [address] Phys: Nahomy Arboleda MD Acct: [id number] Dis Date: Status: ADM IN PHONE #: [phone] Exam Date: 01/18/2019 2330 FAX #: [phone] Reason: hit forehead on sink; not on blood thinners; di EXAMS: CPT CODE: [id number] CT HEAD/BRAIN W/O CONT 25446 EXAM: - CT HEAD/BRAIN W/O CONT HISTORY: Injury, dizziness. TECHNIQUE: Axial tomograms through the brain were obtained without intravenous contrast. This exam was performed according to our departmental dose-optimization program, which includes automated exposure control, adjustment of the mA and/or kV according to patient size and/or use of iterative reconstruction technique. COMPARISON: July 23, 2018. FINDINGS: There is no intracranial hemorrhage, mass, or mass effect. The ventricular system and sulci are age-appropriate. There is no evidence of acute infarction. The osseous structures and orbits, show no si gnificant abnormalities. The visualized sinuses are relatively clear. The soft tissues are unremarkable. IMPRESSION: No acute intracranial abnormality with no evidence of intracranial hemorrhage. at 2338 Reported and signed by: Sheree Dubon MD CC: Nahomy Arboleda MD; Juan Carlos Haddad MD; Sudarshan Barron III, MD Techn ologist:ROLA CERVANTES, RT CTDI: DLP: Trnscb Date/Erasto e: 01/18/2019 (233) [email or web address] Orig Print D/T: S: 019 (4123) CTDI: DLP: PAGE 1 Sign ed Report HGB [id number] 21:06:00* Test Item Value Reference Range Comments HEMOGLOBIN (test code=HGB) 10.1 gram/dL 11.5-15.5 HEMATOCRIT (test code=HCT) 34.5 % 36.0-46.0 HGB [id number] 15:29:00* Test Item Value Reference Range Comments HEMOGLOBIN (test code=HGB) 10.3 gram/dL 11.5-15.5 HEMATOCRIT (test code=HCT) 33.7 % 36.0-46.0 CBC W/AUTO [id number] 11:54:00* Test Item Value Reference Range Comments WHITE BLOOD CELL (test code=WBC) 3.8 K/mm3 4.5-12.5 RED BLOOD CELL (test code=RBC) 3.98 mill/mm3 3.7-5.2 HEMOGLOBIN (test code=HGB) 9.9 gram/dL 11.5-15.5 RESULT VERIFIED BY REPEAT ANALYSIS HEMATOCRIT (test code=HCT) 33.4 % 36.0-46.0 MEAN CELL VOLUME (test code=MCV) 83.9 fL 80-98 MEAN CELL HGB (test code=MCH) 24.9 picogram 27.0-33.0 MEAN CELL HGB CONCETRATION (test code=MCHC) 29.6 gram/dL 33.0-36.0 RED CELL DISTRIBUTION WIDTH (test code=RDW) 16.1 % 11.6-16.2 RED CELL DISTRIBUTION WIDTH SD (test code=RDW-SD) 49.9 fL 37.0-51.0 PLATELET COUNT (test code=PLT) 451 K/mm3 150-450 MEAN PLATELET VOLUME (test code=MPV) 9.4 fL 6.7-11.0 NEUTROPHIL % (test code=NT%) 70.9 % 39.0-69.0 IMMATURE GRANULOCYTE % (test code=IG%) 0.5 % 0.0-5.0 LYMPHOCYTE % (test code=LY%) 19.1 % 25.0-55.0 MONOCYTE % (test code=MO%) 5.0 % 0.0-10.0 EOSINOPHIL % (test code=EO%) 4.2 % 0.0-5.0 BASOPHIL % (test code=BA%) 0.3 % 0.0-1.0 NUCLEATED RBC % (test code=NRBC%) 0.0 % 0-0 NEUTROPHIL # (test code=NT#) 2.72 K/mm3 1.8-7.7 IMMATURE GRANULOCYTE # (test code=IG#) 0.02 x10 3/uL 0-0.03 LYMPHOCYTE # (test code=LY#) 0.73 K/mm3 1.0-5.0 MONOCYTE # (test code=MO#) 0.19 K/mm3 0-0.8 EOSINOPHIL # (test code=EO#) 0.16 K/mm3 0.0-0.5 BASOPHIL # (test code=BA#) 0.01 K/mm3 0.0-0.2 NUCLEATED RBC # (test code=NRBC#) 0.00 K/mm3 0.0-0.1 MANUAL DIFF REQUIRED (test code=MDIFF) NO, ONLY SCAN NEEDED DIFFERENTIAL [id number] 11:54:00* Test Item Value Reference Range Comments STAIN ACCEPTABILITY (test code=STN ACCEPTABLE) STAIN ACCEPTABLE POIKILOCYTOSIS (test code=POIK) 1+ ELLIPTOCYTES (test code=ELL) 1+ PLATELET ESTIMATE (test code=PLTEST) ADEQUATE PLATELET MORPHOLOGY (test code=PLTMORPH) NORMAL BASIC METABOLIC [id number] 11:35:00* Test Item Value Reference Range Comments SODIUM (test code=NA) 143 mmol/L 136-145 POTASSIUM (test code=K) 3.4 mmol/L 3.5-5.1 CHLORIDE (test code=CL) 112.0 mmol/L 98-107 CARBON DIOXIDE (test code=CO2) 24.0 mmol/L 21-32 ANION GAP (test code=GAP) 10.4 10-20 GLUCOSE (test code=GLU) 117 mg/dL 74-106 BLOOD UREA NITROGEN (test code=BUN) 6 mg/dL 7-18 GLOMERULAR FILTRATION RATE (test code=GFR) > 60 mL/min >=60 Estimated GFR by using Modified MDRD formula.Chronic kidney disease is defined as either kidney damageor GFR <60 mL/min/1.73 m2 for >3 months. CREATININE (test code=CREAT) 0.60 mg/dL 0.55-1.02 Note change in reference range due to change in reagent. BUN/CREATININE RATIO (test code=BUN/CREA) 10.0 10-20 CALCIUM (test code=CA) 8.3 mg/dL 8.5-10.1 BASIC METABOLIC [id number] 11:21:00* Test Item Value Reference Range Comments SODIUM (test code=NA) 143 mmol/L 136-145 POTASSIUM (test code=K) 3.4 mmol/L 3.5-5.1 CHLORIDE (test code=CL) 112.0 mmol/L 98-107 CARBON DIOXIDE (test code=CO2) mmol/L 21-32 ANION GAP (test code=GAP) 10-20 GLUCOSE (test code=GLU) mg/dL 74-106 BLOOD UREA NITROGEN (test code=BUN) mg/dL 7-18 GLOMERULAR FILTRATION RATE (test code=GFR) mL/min >=60 CREATININE (test code=CREAT) mg/dL 0.55-1.02 BUN/CREATININE RATIO (test code=BUN/CREA) 10-20 CALCIUM (test code=CA) 8.3 mg/dL 8.5-10.1 CBC W/AUTO [id number] 10:33:00* Test Item Value Reference Range Comments WHITE BLOOD CELL (test code=WBC) 3.8 K/mm3 4.5-12.5 RED BLOOD CELL (test code=RBC) 3.98 mill/mm3 3.7-5.2 HEMOGLOBIN (test code=HGB) 9.9 gram/dL 11.5-15.5 RESULT VERIFIED BY REPEAT ANALYSIS HEMATOCRIT (test code=HCT) 33.4 % 36.0-46.0 MEAN CELL VOLUME (test code=MCV) 83.9 fL 80-98 MEAN CELL HGB (test code=MCH) 24.9 picogram 27.0-33.0 MEAN CELL HGB CONCETRATION (test code=MCHC) 29.6 gram/dL 33.0-36.0 RED CELL DISTRIBUTION WIDTH (test code=RDW) 16.1 % 11.6-16.2 RED CELL DISTRIBUTION WIDTH SD (test code=RDW-SD) 49.9 fL 37.0-51.0 PLATELET COUNT (test code=PLT) 451 K/mm3 150-450 MEAN PLATELET VOLUME (test code=MPV) 9.4 fL 6.7-11.0 NEUTROPHIL % (test code=NT%) 70.9 % 39.0-69.0 IMMATURE GRANULOCYTE % (test code=IG%) 0.5 % 0.0-5.0 LYMPHOCYTE % (test code=LY%) 19.1 % 25.0-55.0 MONOCYTE % (test code=MO%) 5.0 % 0.0-10.0 EOSINOPHIL % (test code=EO%) 4.2 % 0.0-5.0 BASOPHIL % (test code=BA%) 0.3 % 0.0-1.0 NUCLEATED RBC % (test code=NRBC%) 0.0 % 0-0 NEUTROPHIL # (test code=NT#) 2.72 K/mm3 1.8-7.7 IMMATURE GRANULOCYTE # (test code=IG#) 0.02 x10 3/uL 0-0.03 LYMPHOCYTE # (test code=LY#) 0.73 K/mm3 1.0-5.0 MONOCYTE # (test code=MO#) 0.19 K/mm3 0-0.8 EOSINOPHIL # (test code=EO#) 0.16 K/mm3 0.0-0.5 BASOPHIL # (test code=BA#) 0.01 K/mm3 0.0-0.2 NUCLEATED RBC # (test code=NRBC#) 0.00 K/mm3 0.0-0.1 MANUAL DIFF REQUIRED (test code=MDIFF) NO, ONLY SCAN NEEDED DIFFERENTIAL [id number] 10:33:00* Test Item Value Reference Range Comments STAIN ACCEPTABILITY (test code=STN ACCEPTABLE) CABOT RINGS (test code=CAB) MORPHOLOGY COMMENT (test code=MOC) PLATELET ESTIMATE (test code=PLTEST) PLATELET MORPHOLOGY (test code=PLTMORPH) CBC W/AUTO [id number] 10:33:00* Test Item Value Reference Range Comments WHITE BLOOD CELL (test code=WBC) 3.8 K/mm3 4.5-12.5 RED BLOOD CELL (test code=RBC) 3.98 mill/mm3 3.7-5.2 HEMOGLOBIN (test code=HGB) 9.9 gram/dL 11.5-15.5 RESULT VERIFIED BY REPEAT ANALYSIS HEMATOCRIT (test code=HCT) 33.4 % 36.0-46.0 MEAN CELL VOLUME (test code=MCV) 83.9 fL 80-98 MEAN CELL HGB (test code=MCH) 24.9 picogram 27.0-33.0 MEAN CELL HGB CONCETRATION (test code=MCHC) 29.6 gram/dL 33.0-36.0 RED CELL DISTRIBUTION WIDTH (test code=RDW) 16.1 % 11.6-16.2 RED CELL DISTRIBUTION WIDTH SD (test code=RDW-SD) 49.9 fL 37.0-51.0 PLATELET COUNT (test code=PLT) 451 K/mm3 150-450 MEAN PLATELET VOLUME (test code=MPV) 9.4 fL 6.7-11.0 NEUTROPHIL % (test code=NT%) 70.9 % 39.0-69.0 IMMATURE GRANULOCYTE % (test code=IG%) 0.5 % 0.0-5.0 LYMPHOCYTE % (test code=LY%) 19.1 % 25.0-55.0 MONOCYTE % (test code=MO%) 5.0 % 0.0-10.0 EOSINOPHIL % (test code=EO%) 4.2 % 0.0-5.0 BASOPHIL % (test code=BA%) 0.3 % 0.0-1.0 NUCLEATED RBC % (test code=NRBC%) 0.0 % 0-0 NEUTROPHIL # (test code=NT#) 2.72 K/mm3 1.8-7.7 IMMATURE GRANULOCYTE # (test code=IG#) 0.02 x10 3/uL 0-0.03 LYMPHOCYTE # (test code=LY#) 0.73 K/mm3 1.0-5.0 MONOCYTE # (test code=MO#) 0.19 K/mm3 0-0.8 EOSINOPHIL # (test code=EO#) 0.16 K/mm3 0.0-0.5 BASOPHIL # (test code=BA#) 0.01 K/mm3 0.0-0.2 NUCLEATED RBC # (test code=NRBC#) 0.00 K/mm3 0.0-0.1 MANUAL DIFF REQUIRED (test code=MDIFF) NO, ONLY SCAN NEEDED DIFFERENTIAL [id number] 10:33:00* Test Item Value Reference Range Comments STAIN ACCEPTABILITY (test code=STN ACCEPTABLE) CABOT RINGS (test code=CAB) MORPHOLOGY COMMENT (test code=MOC) PLATELET ESTIMATE (test code=PLTEST) PLATELET MORPHOLOGY (test code=PLTMORPH) CBC W/AUTO [id number] 10:33:00* Test Item Value Reference Range Comments WHITE BLOOD CELL (test code=WBC) 3.8 K/mm3 4.5-12.5 RED BLOOD CELL (test code=RBC) 3.98 mill/mm3 3.7-5.2 HEMOGLOBIN (test code=HGB) 9.9 gram/dL 11.5-15.5 RESULT VERIFIED BY REPEAT ANALYSIS HEMATOCRIT (test code=HCT) 33.4 % 36.0-46.0 MEAN CELL VOLUME (test code=MCV) 83.9 fL 80-98 MEAN CELL HGB (test code=MCH) 24.9 picogram 27.0-33.0 MEAN CELL HGB CONCETRATION (test code=MCHC) 29.6 gram/dL 33.0-36.0 RED CELL DISTRIBUTION WIDTH (test code=RDW) 16.1 % 11.6-16.2 RED CELL DISTRIBUTION WIDTH SD (test code=RDW-SD) 49.9 fL 37.0-51.0 PLATELET COUNT (test code=PLT) 451 K/mm3 150-450 MEAN PLATELET VOLUME (test code=MPV) 9.4 fL 6.7-11.0 NEUTROPHIL % (test code=NT%) 70.9 % 39.0-69.0 IMMATURE GRANULOCYTE % (test code=IG%) 0.5 % 0.0-5.0 LYMPHOCYTE % (test code=LY%) 19.1 % 25.0-55.0 MONOCYTE % (test code=MO%) 5.0 % 0.0-10.0 EOSINOPHIL % (test code=EO%) 4.2 % 0.0-5.0 BASOPHIL % (test code=BA%) 0.3 % 0.0-1.0 NUCLEATED RBC % (test code=NRBC%) 0.0 % 0-0 NEUTROPHIL # (test code=NT#) 2.72 K/mm3 1.8-7.7 IMMATURE GRANULOCYTE # (test code=IG#) 0.02 x10 3/uL 0-0.03 LYMPHOCYTE # (test code=LY#) 0.73 K/mm3 1.0-5.0 MONOCYTE # (test code=MO#) 0.19 K/mm3 0-0.8 EOSINOPHIL # (test code=EO#) 0.16 K/mm3 0.0-0.5 BASOPHIL # (test code=BA#) 0.01 K/mm3 0.0-0.2 NUCLEATED RBC # (test code=NRBC#) 0.00 K/mm3 0.0-0.1 MANUAL DIFF REQUIRED (test code=MDIFF) NO, ONLY SCAN NEEDED DIFFERENTIAL [id number] 10:33:00* Test Item Value Reference Range Comments STAIN ACCEPTABILITY (test code=STN ACCEPTABLE) MORPHOLOGY COMMENT (test code=MOC) PLATELET ESTIMATE (test code=PLTEST) PLATELET MORPHOLOGY (test code=PLTMORPH) CBC W/AUTO [id number] 10:33:00* Test Item Value Reference Range Comments WHITE BLOOD CELL (test code=WBC) 3.8 K/mm3 4.5-12.5 RED BLOOD CELL (test code=RBC) 3.98 mill/mm3 3.7-5.2 HEMOGLOBIN (test code=HGB) 9.9 gram/dL 11.5-15.5 RESULT VERIFIED BY REPEAT ANALYSIS HEMATOCRIT (test code=HCT) 33.4 % 36.0-46.0 MEAN CELL VOLUME (test code=MCV) 83.9 fL 80-98 MEAN CELL HGB (test code=MCH) 24.9 picogram 27.0-33.0 MEAN CELL HGB CONCETRATION (test code=MCHC) 29.6 gram/dL 33.0-36.0 RED CELL DISTRIBUTION WIDTH (test code=RDW) 16.1 % 11.6-16.2 RED CELL DISTRIBUTION WIDTH SD (test code=RDW-SD) 49.9 fL 37.0-51.0 PLATELET COUNT (test code=PLT) 451 K/mm3 150-450 MEAN PLATELET VOLUME (test code=MPV) 9.4 fL 6.7-11.0 NEUTROPHIL % (test code=NT%) 70.9 % 39.0-69.0 IMMATURE GRANULOCYTE % (test code=IG%) 0.5 % 0.0-5.0 LYMPHOCYTE % (test code=LY%) 19.1 % 25.0-55.0 MONOCYTE % (test code=MO%) 5.0 % 0.0-10.0 EOSINOPHIL % (test code=EO%) 4.2 % 0.0-5.0 BASOPHIL % (test code=BA%) 0.3 % 0.0-1.0 NUCLEATED RBC % (test code=NRBC%) 0.0 % 0-0 NEUTROPHIL # (test code=NT#) 2.72 K/mm3 1.8-7.7 IMMATURE GRANULOCYTE # (test code=IG#) 0.02 x10 3/uL 0-0.03 LYMPHOCYTE # (test code=LY#) 0.73 K/mm3 1.0-5.0 MONOCYTE # (test code=MO#) 0.19 K/mm3 0-0.8 EOSINOPHIL # (test code=EO#) 0.16 K/mm3 0.0-0.5 BASOPHIL # (test code=BA#) 0.01 K/mm3 0.0-0.2 NUCLEATED RBC # (test code=NRBC#) 0.00 K/mm3 0.0-0.1 MANUAL DIFF REQUIRED (test code=MDIFF) NO, ONLY SCAN NEEDED DIFFERENTIAL [id number] 10:33:00* Test Item Value Reference Range Comments STAIN ACCEPTABILITY (test code=STN ACCEPTABLE) CABOT RINGS (test code=CAB) MORPHOLOGY COMMENT (test code=MOC) PLATELET ESTIMATE (test code=PLTEST) PLATELET MORPHOLOGY (test code=PLTMORPH) HGB [id number] 21:35:00* Test Item Value Reference Range Comments HEMOGLOBIN (test code=HGB) 6.9 gram/dL 11.5-15.5 HEMATOCRIT (test code=HCT) 24.3 % 36.0-46.0 HGB [id number] 11:50:00* Test Item Value Reference Range Comments HEMOGLOBIN (test code=HGB) 6.7 gram/dL 11.5-15.5 HEMATOCRIT (test code=HCT) 23.8 % 36.0-46.0 BASIC METABOLIC [id number] 06:51:00* Test Item Value Reference Range Comments SODIUM (test code=NA) 140 mmol/L 136-145 POTASSIUM (test code=K) 3.7 mmol/L 3.5-5.1 CHLORIDE (test code=CL) 111.0 mmol/L 98-107 CARBON DIOXIDE (test code=CO2) 24.0 mmol/L 21-32 ANION GAP (test code=GAP) 8.7 10-20 GLUCOSE (test code=GLU) 82 mg/dL 74-106 BLOOD UREA NITROGEN (test code=BUN) 8 mg/dL 7-18 GLOMERULAR FILTRATION RATE (test code=GFR) > 60 mL/min >=60 Estimated GFR by using Modified MDRD formula.Chronic kidney disease is defined as either kidney damageor GFR <60 mL/min/1.73 m2 for >3 months. CREATININE (test code=CREAT) 0.60 mg/dL 0.55-1.02 Note change in reference range due to change in reagent. BUN/CREATININE RATIO (test code=BUN/CREA) 13.3 10-20 CALCIUM (test code=CA) 8.1 mg/dL 8.5-10.1 CBC W/AUTO [id number] 06:50:00* Test Item Value Reference Range Comments WHITE BLOOD CELL (test code=WBC) 4.3 K/mm3 4.5-12.5 RED BLOOD CELL (test code=RBC) 2.82 mill/mm3 3.7-5.2 HEMOGLOBIN (test code=HGB) 6.8 gram/dL 11.5-15.5 HEMATOCRIT (test code=HCT) 23.4 % 36.0-46.0 MEAN CELL VOLUME (test code=MCV) 83.0 fL 80-98 MEAN CELL HGB (test code=MCH) 24.1 picogram 27.0-33.0 MEAN CELL HGB CONCETRATION (test code=MCHC) 29.1 gram/dL 33.0-36.0 RED CELL DISTRIBUTION WIDTH (test code=RDW) 16.1 % 11.6-16.2 RED CELL DISTRIBUTION WIDTH SD (test code=RDW-SD) 49.1 fL 37.0-51.0 PLATELET COUNT (test code=PLT) 457 K/mm3 150-450 RESULT VERIFIED BY REPEAT ANALYSIS MEAN PLATELET VOLUME (test code=MPV) 9.9 fL 6.7-11.0 NEUTROPHIL % (test code=NT%) 64.2 % 39.0-69.0 IMMATURE GRANULOCYTE % (test code=IG%) 0.5 % 0.0-5.0 LYMPHOCYTE % (test code=LY%) 26.9 % 25.0-55.0 MONOCYTE % (test code=MO%) 3.3 % 0.0-10.0 EOSINOPHIL % (test code=EO%) 4.9 % 0.0-5.0 BASOPHIL % (test code=BA%) 0.2 % 0.0-1.0 NUCLEATED RBC % (test code=NRBC%) 0.0 % 0-0 NEUTROPHIL # (test code=NT#) 2.74 K/mm3 1.8-7.7 IMMATURE GRANULOCYTE # (test code=IG#) 0.02 x10 3/uL 0-0.03 LYMPHOCYTE # (test code=LY#) 1.15 K/mm3 1.0-5.0 MONOCYTE # (test code=MO#) 0.14 K/mm3 0-0.8 EOSINOPHIL # (test code=EO#) 0.21 K/mm3 0.0-0.5 BASOPHIL # (test code=BA#) 0.01 K/mm3 0.0-0.2 NUCLEATED RBC # (test code=NRBC#) 0.00 K/mm3 0.0-0.1 MANUAL DIFF REQUIRED (test code=MDIFF) NO URINALYSIS [id number] 05:26:00* Test Item Value Reference Range Comments UA COLOR (test code=COLU) COLORLESS YELLOW UA APPEARANCE (test code=APPU) CLEAR CLEAR UA GLUCOSE DIPSTICK (test code=DGLUU) NEGATIVE mg/dL NEGATIVE UA BILIRUBIN DIPSTICK (test code=BILU) NEGATIVE mg/dL NEGATIVE UA KETONE DIPSTICK (test code=KETU) NEGATIVE mg/dL NEGATIVE UA SPECIFIC GRAVITY (test code=SGU) 1.046 1.001-1.035 UA BLOOD DIPSTICK (test code=MARIAM) Negative mg/dL NEGATIVE UA PH DIPSTICK (test code=DANITZA) 6.0 5.0-8.0 UA PROTEIN DIPSTICK (test code=PROU) NEGATIVE mg/dL NEGATIVE UA UROBILINIOGEN DIPSTICK (test code=URO) NEGATIVE mg/dL NEGATIVE UA NITRITE DIPSTICK (test code=SHARRON) NEGATIVE NEGATIVE UA LEUKOCYTE ESTERASE W REFLEX (test code=LEUUR) NEGATIVE Lorenzo/uL NEGATIVE UA WBC (test code=WBCU) 0-5 per HPF 0-5 UA RBC (test code=RBCU) 0-2 #/HPF 0-5 UA EPITHELIAL CELLS (test code=EPIU) FEW per HPF FEW UA BACTERIA (test code=BACU) FEW #/HPF NONE Urine Source? Clean Catch- CT ABD PELVIS [id number] 03:59:00 Name: WALLACE GLORIA [facility] : 1975 Age/S: 43 / F [address] [facility] Unit #: [id number] Loc: [place] [address] Phys: Saloni Law DO Acct: [id number] Di s Date: Status: ADM IN PHONE #: [phone] Exam Date: 01/16/2019 0335 FAX #: Reason: ABDOMINAL PAIN, R/O APPENDICITIS EXAMS: CPT CODE: [id number] CT ABD PELVIS W/CONT [address]8048 CT abdomen and pelvis with IV contrast. Indication: Abdominal pain rule out appendicitis Location: R16 Comparison: None available Technique: CT images of the abdomen and pelvis were obtained from the sabas phragm to the pubic symphysis after the administration of intravenous cont rast contrast. Coronal reformats are provided. One or more of the following dose reduction techniques were used: Automated exposure control, adjustment of the mA and/or kV according to patient size, and/or utilizat ion of iterative reconstruction technique. Findings: Lungs bases: Unremarkable. Liver: Unremarkable. Gallb ladder: Surgically absent Pancreas: Unremarkable. Spleen: Unremarkab le. Adrenal glands: Unremarkable. Kidneys: Unremarkable with the exc eption of a nonobstructing right renal calculus. Bowel: No bowel obs truction. The appendix is normal in caliber and contains air as well as mi nimal internal hypodensity possibly reflective of stool versus a small harrison endicolith Peritoneum: No ascites. No free air Pelvis: Likely bilat eral tubal ligations Skeletal: No acute fracture.. Impression: No CT evidence of an acute abnormality within the abdominal pelvis to explain the patient's symptomology. Additio nal findings as detailed above PAGE 1 Signed Repo rt (CONTINUED) Name: WALLACE GLORIA [facility] : 1975 Age/S: 43 / F [address] [facility] Unit #: [id number] Loc: [place] 7 [address] Phys: Moriah Law DO Acct: [id number] Dis Date: Status: ADM IN PHONE #: [phone] Exam Date: 01/16/2019334 FAX #: [phone] Reason: ABDOMINAL PAIN, R/O APPENDICITIS EXAMS: CPT CODE: [id number] CT ABD PELVIS W/CONT 14916 <Continued> at 0359 Reported and signed by: Deanna Nicholson M.D. CC: Sudarshan Barron III, MD; Moriah Law DO Technologist:ROLA CERVANTES, RT CTDI: DLP: Trnyaredb Date/Time: 01/16/2019 (358) [email or web address] Orig Print D/T: S: 01/16/2019 (0815) CTDI: DLP: PAGE 2 Signed Report BASIC METABOLIC [id number] 02:37:00* Test Item Value Reference Range Comments SODIUM (test code=NA) 142 mmol/L 136-145 POTASSIUM (test code=K) 3.3 mmol/L 3.5-5.1 CHLORIDE (test code=CL) 110.0 mmol/L 98-107 CARBON DIOXIDE (test code=CO2) 25.0 mmol/L 21-32 ANION GAP (test code=GAP) 10.3 10-20 GLUCOSE (test code=GLU) 112 mg/dL 74-106 BLOOD UREA NITROGEN (test code=BUN) 14 mg/dL 7-18 GLOMERULAR FILTRATION RATE (test code=GFR) > 60 mL/min >=60 Estimated GFR by using Modified MDRD formula.Chronic kidney disease is defined as either kidney damageor GFR <60 mL/min/1.73 m2 for >3 months. CREATININE (test code=CREAT) 0.60 mg/dL 0.55-1.02 Note change in reference range due to change in reagent. BUN/CREATININE RATIO (test code=BUN/CREA) 23.3 10-20 CALCIUM (test code=CA) 8.1 mg/dL 8.5-10.1 HEPATIC FUNCTION [id number] 02:37:00* Test Item Value Reference Range Comments TOTAL PROTEIN (test code=PROT) 7.8 gram/dL 6.4-8.2 ALBUMIN (test code=ALB) 3.0 g/dL 3.4-5.0 GLOBULIN (test code=GLOB) 4.8 gram/dL 2.7-4.2 ALBUMIN/GLOBULIN RATIO (test code=A/G) 0.6 0.75-1.50 BILIRUBIN TOTAL (test code=BILT) 0.10 mg/dL 0.0-1.0 BILIRUBIN DIRECT (test code=BILD) < 0.05 mg/dL 0.0-0.20 SGOT/AST (test code=AST) 11 IUnit/L 15-37 SGPT/ALT (test code=ALT) 10 IUnit/L 12-78 ALKALINE PHOSPHATASE TOTAL (test code=ALKP) 95 IUnit/L 45-117 Note change in reference range due to change in reagent. [id number] 02:37:00* Test Item Value Reference Range Comments LIPASE (test code=LIP) 215 U/L 73.0-393.0 HCG SERUM [id number] 02:37:00* Test Item Value Reference Range Comments HCG SERUM QUAL (test code=HCGQL) NEGATIVE NEGATIVE This HCGQL test is NOT applicable for MALE patients.Check with nurse about probable order error.If Tumor Marker Test needed, nurse should order test "HCGTU"(Test #550.28490) BASIC METABOLIC [id number] 02:34:00* Test Item Value Reference Range Comments SODIUM (test code=NA) 142 mmol/L 136-145 POTASSIUM (test code=K) 3.3 mmol/L 3.5-5.1 CHLORIDE (test code=CL) 110.0 mmol/L 98-107 CARBON DIOXIDE (test code=CO2) mmol/L 21-32 ANION GAP (test code=GAP) 10-20 GLUCOSE (test code=GLU) mg/dL 74-106 BLOOD UREA NITROGEN (test code=BUN) mg/dL 7-18 GLOMERULAR FILTRATION RATE (test code=GFR) mL/min >=60 CREATININE (test code=CREAT) mg/dL 0.55-1.02 BUN/CREATININE RATIO (test code=BUN/CREA) 10-20 CALCIUM (test code=CA) mg/dL 8.5-10.1 HEPATIC FUNCTION [id number] 02:34:00* Test Item Value Reference Range Comments TOTAL PROTEIN (test code=PROT) gram/dL 6.4-8.2 ALBUMIN (test code=ALB) g/dL 3.4-5.0 GLOBULIN (test code=GLOB) gram/dL 2.7-4.2 ALBUMIN/GLOBULIN RATIO (test code=A/G) 0.75-1.50 BILIRUBIN TOTAL (test code=BILT) mg/dL 0.0-1.0 BILIRUBIN DIRECT (test code=BILD) mg/dL 0.0-0.20 SGOT/AST (test code=AST) IUnit/L 15-37 SGPT/ALT (test code=ALT) IUnit/L 12-78 ALKALINE PHOSPHATASE TOTAL (test code=ALKP) IUnit/L 45-117 [id number] 02:34:00* Test Item Value Reference Range Comments LIPASE (test code=LIP) U/L 73.0-393.0 HCG SERUM [id number] 02:34:00* Test Item Value Reference Range Comments HCG SERUM QUAL (test code=HCGQL) NEGATIVE BASIC METABOLIC [id number] 02:34:00* Test Item Value Reference Range Comments SODIUM (test code=NA) 142 mmol/L 136-145 POTASSIUM (test code=K) 3.3 mmol/L 3.5-5.1 CHLORIDE (test code=CL) 110.0 mmol/L 98-107 CARBON DIOXIDE (test code=CO2) mmol/L 21-32 ANION GAP (test code=GAP) 10-20 GLUCOSE (test code=GLU) mg/dL 74-106 BLOOD UREA NITROGEN (test code=BUN) mg/dL 7-18 GLOMERULAR FILTRATION RATE (test code=GFR) mL/min >=60 CREATININE (test code=CREAT) mg/dL 0.55-1.02 BUN/CREATININE RATIO (test code=BUN/CREA) 10-20 CALCIUM (test code=CA) mg/dL 8.5-10.1 HEPATIC FUNCTION [id number] 02:34:00* Test Item Value Reference Range Comments TOTAL PROTEIN (test code=PROT) gram/dL 6.4-8.2 ALBUMIN (test code=ALB) g/dL 3.4-5.0 GLOBULIN (test code=GLOB) gram/dL 2.7-4.2 ALBUMIN/GLOBULIN RATIO (test code=A/G) 0.75-1.50 BILIRUBIN TOTAL (test code=BILT) mg/dL 0.0-1.0 BILIRUBIN DIRECT (test code=BILD) mg/dL 0.0-0.20 SGOT/AST (test code=AST) IUnit/L 15-37 SGPT/ALT (test code=ALT) IUnit/L 12-78 ALKALINE PHOSPHATASE TOTAL (test code=ALKP) IUnit/L 45-117 [id number] 02:34:00* Test Item Value Reference Range Comments LIPASE (test code=LIP) U/L 73.0-393.0 HCG SERUM [id number] 02:34:00* Test Item Value Reference Range Comments HCG SERUM QUAL (test code=HCGQL) NEGATIVE NEGATIVE This HCGQL test is NOT applicable for MALE patients.Check with nurse about probable order error.If Tumor Marker Test needed, nurse should order test "HCGTU"(Test #550.41551) CBC W/O [id number] 02:12:00* Test Item Value Reference Range Comments WHITE BLOOD CELL (test code=WBC) 5.6 K/mm3 4.5-12.5 RED BLOOD CELL (test code=RBC) 3.32 mill/mm3 3.7-5.2 HEMOGLOBIN (test code=HGB) 8.0 gram/dL 11.5-15.5 HEMATOCRIT (test code=HCT) 27.6 % 36.0-46.0 MEAN CELL VOLUME (test code=MCV) 83.1 fL 80-98 MEAN CELL HGB (test code=MCH) 24.1 picogram 27.0-33.0 MEAN CELL HGB CONCETRATION (test code=MCHC) 29.0 gram/dL 33.0-36.0 RED CELL DISTRIBUTION WIDTH (test code=RDW) 16.0 % 11.6-16.2 PLATELET COUNT (test code=PLT) 540 K/mm3 150-450 MEAN PLATELET VOLUME (test code=MPV) 9.4 fL 6.7-11.0 BASIC METABOLIC [id number] 04:28:00* Test Item Value Reference Range Comments SODIUM (test code=NA) 138 mEq/L 134-147 POTASSIUM (test code=K) 3.9 mEq/L 3.4-5.0 CHLORIDE (test code=CL) 108 mEq/L 100-108 CARBON DIOXIDE (test code=CO2) 25 mEq/L 21-33 ANION GAP (test code=GAP) 9 0-20 GLUCOSE (test code=GLU) 132 mg/dL 70-110 BLOOD UREA NITROGEN (test code=BUN) 11 mg/dL 7-18 GLOMERULAR FILTRATION RATE (test code=GFR) 91.3 95-105 Units of measure=ml/min/1.73 m2 CREATININE (test code=CREAT) 0.7 mg/dL 0.6-1.3 CALCIUM (test code=CA) 7.8 mg/dL 8.0-10.5 CBC W/AUTO [id number] 04:10:00* Test Item Value Reference Range Comments WHITE BLOOD CELL (test code=WBC) 8.35 x10 3/uL 4.5-11.0 RED BLOOD CELL (test code=RBC) 2.93 x10 6/uL 3.54-5.02 HEMOGLOBIN (test code=HGB) 7.3 g/dL 11.0-15.0 HEMATOCRIT (test code=HCT) 23.9 % 33.0-45.0 MEAN CELL VOLUME (test code=MCV) 81.6 fL 81.0-99.0 MEAN CELL HGB (test code=MCH) 24.9 pg 27.0-33.0 MEAN CELL HGB CONCETRATION (test code=MCHC) 30.5 g/dL 33.0-37.0 RED CELL DISTRIBUTION WIDTH CV (test code=RDW) 15.6 % 11.5-14.5 RED CELL DISTRIBUTION WIDTH SD (test code=RDW-SD) 46.5 fL 37.0-54.0 PLATELET COUNT (test code=PLT) 400 x10 3/uL 150-400 MEAN PLATELET VOLUME (test code=MPV) 9.0 fL 7.0-9.0 NEUTROPHIL % (test code=NT%) 83.9 % 56.0-77.0 IMMATURE GRANULOCYTE % (test code=IG%) 0.5 % 0.0-2.0 LYMPHOCYTE % (test code=LY%) 10.2 % 14.0-32.0 MONOCYTE % (test code=MO%) 5.4 % 4.8-9.0 EOSINOPHIL % (test code=EO%) 0.0 % 0.3-3.7 BASOPHIL % (test code=BA%) 0.0 % 0.0-2.0 NUCLEATED RBC % (test code=NRBC%) 0.0 % 0-0 NEUTROPHIL # (test code=NT#) 7.01 x10 3/uL 2.0-7.6 IMMATURE GRANULOCYTE # (test code=IG#) 0.04 x10 3/uL 0.00-0.03 LYMPHOCYTE # (test code=LY#) 0.85 x10 3/uL 1.0-3.8 MONOCYTE # (test code=MO#) 0.45 x10 3/uL 0.1-0.8 EOSINOPHIL # (test code=EO#) 0.00 x10 3/uL 0.0-0.2 BASOPHIL # (test code=BA#) 0.00 x10 3/uL 0.0-0.2 NUCLEATED RBC # (test code=NRBC#) 0.00 x10 3/uL 0.0-0.1 MANUAL DIFF REQUIRED (test code=MDIFF) NO - XR KNEE 1 OR 2 V [id number] 09:18:00 FAX: Buddy Whatley [phone] [place]: St: ADM FAX: Sudarshan Narayanan III [phone] FAX: Car Maddox [phone] Name: WALLACE GLORIA [facility] : 1975 Age/S: 43/F [address] [place] [address] Unit #: [id number] Loc: [place] [address] Phys: Car Morales Acct: [id number] Dis Date: Status: ADM IN ONE #: [phone] Exam Date: 11/28/2018 09 FAX #: [phone] Reason: post op TKA EXAMS: CPT CODE: [id number] XR KNEE 1 [place] 2 [place] [address] RIGHT KNEE 2 V IEWS 11/28/2018 COMPARISON: October 15, 2014 CLINICA L HISTORY: post op TKA FINDINGS: No acute fracture or dislocation is noted. A right knee prosthesis is present and is in anatomic a lignment. Anterior soft tissue hussain noted. Air is seen in soft tissues due to the recent knee surgery. CONCLUSION: No acute osseous abnormality. Changes of right knee arthroplasty. Elec tronically Signed by Anthony Red on 11/28/2018 at 0918 Reported and signed by: Walter Red M.D. CC: Buddy Godinez MD; Sudarshan Barron III, MD; Car GOODWIN Technologist: RT Cynthia(Anastasiya) Trnscrd Date/Time/By: 11/28/2018 (4009) : By: [email or web address] Orig Print D/T: S: 11/28/2018 (7522) PAGE 1 Signed Report PROTHROMBIN [id number] 06:44:00* Test Item Value Reference Range Comments PROTHROMBIN TIME PATIENT (test code=PTP) 12.1 SECONDS 9.3-12.9 INTERNATIONAL NORMAL RATIO (test code=INR) 1.1 0.8-1.2 TARGET INR BY INDICATION Indication INR1. Prophylaxis of venous thrombosis 2.0 - 3.0 (orthopedic surgery), Prophylaxis of venous thrombosis (other than high-risk surgery), Treatment of Deep Vein Thrombosis/Pulmonary Embolism, Prevention of systemic embolism - Tissue heart valves, Acute Myocardial Infarction (to prevent systemic embolism), Valvular heart disease, Atrial Fibrillation, Bileaflet mechanical valve in aortic position.2. Mechanical prosthetic valves (high risk), 2.5 - 3.5 Presence of Lupus Anticoagulant or Antiphospholipid Antibodies, Prevention of systemic embolism - Acute Myocardial Infarction (to prevent recurrent infarct). THROMBOPLASTIN TIME [id number] 06:44:00* Test Item Value Reference Range Comments THROMBOPLASTIN TIME PARTIAL (test code=PTT) 30.6 Seconds 25.0-39.5 Therapeutic Range: 61.8-83.8 Sec Effective 11/15/2013 URINALYSIS [id number] 06:44:00* Test Item Value Reference Range Comments UA COLOR (test code=COLU) YELLOW YEL/STRAW UA APPEARANCE (test code=APPU) SL CLOUDY CLEAR UA GLUCOSE DIPSTICK (test code=DGLUU) NEGATIVE NEGATIVE UA BILIRUBIN DIPSTICK (test code=BILU) NEGATIVE NEGATIVE UA KETONE DIPSTICK (test code=KETU) NEGATIVE NEGATIVE UA SPECIFIC GRAVITY (test code=SGU) 1.014 1.005-1.030 UA BLOOD DIPSTICK (test code=MARIAM) NEGATIVE NEGATIVE UA PH DIPSTICK (test code=DANITZA) 5.0 5.0-7.0 UA PROTEIN DIPSTICK (test code=PROU) NEGATIVE NEGATIVE UA UROBILINIOGEN DIPSTICK (test code=URO) 0.2 mg/dL 0.2-1.0 UA NITRITE DIPSTICK (test code=SHARRON) NEGATIVE NEGATIVE UA LEUKOCYTE ESTERASE DIPSTICK (test code=LEUU) TRACE NEGATIVE UA WBC (test code=WBCU) 4-9 WBC/HPF 0-3 UA RBC (test code=RBCU) 0-3 RBC/HPF 0-3 UA BACTERIA (test code=BACU) TRACE /HPF NONE SEEN UA SQUAMOUS CELLS (test code=SQU) 0-5 /HPF NONE SEEN UA HYALINE CAST (test code=HYALU) 0-2 /LPF NONE SEEN UA MUCUS (test code=MUCU) TRACE /LPF NONE SEEN COMPREHENSIVE METABOLIC [id number] 06:20:00* Test Item Value Reference Range Comments SODIUM (test code=NA) 138 mEq/L 134-147 POTASSIUM (test code=K) 3.5 mEq/L 3.4-5.0 CHLORIDE (test code=CL) 106 mEq/L 100-108 CARBON DIOXIDE (test code=CO2) 25 mEq/L 21-33 ANION GAP (test code=GAP) 11 0-20 GLUCOSE (test code=GLU) 105 mg/dL 70-110 BLOOD UREA NITROGEN (test code=BUN) 11 mg/dL 7-18 GLOMERULAR FILTRATION RATE (test code=GFR) 91.3 95-105 Units of measure=ml/min/1.73 m2 CREATININE (test code=CREAT) 0.7 mg/dL 0.6-1.3 TOTAL PROTEIN (test code=PROT) 8.7 g/dL 6.4-8.2 ALBUMIN (test code=ALB) 3.30 g/dL 3.4-5.0 CALCIUM (test code=CA) 8.4 mg/dL 8.0-10.5 BILIRUBIN TOTAL (test code=BILT) 0.20 mg/dL 0.0-1.0 SGOT/AST (test code=AST) 18 IUnit/L 15-37 SGPT/ALT (test code=ALT) 18 IUnit/L 15-65 ALKALINE PHOSPHATASE TOTAL (test code=ALKP) 122 IUnit/L 20-125 CBC W/AUTO [id number] 06:00:00* Test Item Value Reference Range Comments WHITE BLOOD CELL (test code=WBC) 4.86 x10 3/uL 4.5-11.0 RED BLOOD CELL (test code=RBC) 3.87 x10 6/uL 3.54-5.02 HEMOGLOBIN (test code=HGB) 9.5 g/dL 11.0-15.0 HEMATOCRIT (test code=HCT) 31.7 % 33.0-45.0 MEAN CELL VOLUME (test code=MCV) 81.9 fL 81.0-99.0 MEAN CELL HGB (test code=MCH) 24.5 pg 27.0-33.0 MEAN CELL HGB CONCETRATION (test code=MCHC) 30.0 g/dL 33.0-37.0 RED CELL DISTRIBUTION WIDTH CV (test code=RDW) 15.6 % 11.5-14.5 RED CELL DISTRIBUTION WIDTH SD (test code=RDW-SD) 46.3 fL 37.0-54.0 PLATELET COUNT (test code=PLT) 456 x10 3/uL 150-400 MEAN PLATELET VOLUME (test code=MPV) 9.0 fL 7.0-9.0 NEUTROPHIL % (test code=NT%) 76.0 % 56.0-77.0 IMMATURE GRANULOCYTE % (test code=IG%) 0.4 % 0.0-2.0 LYMPHOCYTE % (test code=LY%) 17.7 % 14.0-32.0 MONOCYTE % (test code=MO%) 4.1 % 4.8-9.0 EOSINOPHIL % (test code=EO%) 1.6 % 0.3-3.7 BASOPHIL % (test code=BA%) 0.2 % 0.0-2.0 NUCLEATED RBC % (test code=NRBC%) 0.0 % 0-0 NEUTROPHIL # (test code=NT#) 3.69 x10 3/uL 2.0-7.6 IMMATURE GRANULOCYTE # (test code=IG#) 0.02 x10 3/uL 0.00-0.03 LYMPHOCYTE # (test code=LY#) 0.86 x10 3/uL 1.0-3.8 MONOCYTE # (test code=MO#) 0.20 x10 3/uL 0.1-0.8 EOSINOPHIL # (test code=EO#) 0.08 x10 3/uL 0.0-0.2 BASOPHIL # (test code=BA#) 0.01 x10 3/uL 0.0-0.2 NUCLEATED RBC # (test code=NRBC#) 0.00 x10 3/uL 0.0-0.1 MANUAL DIFF REQUIRED (test code=MDIFF) NO HCG SERUM [id number] 15:24:00* Test Item Value Reference Range Comments HCG SERUM QUAL (test code=HCGQL) SERUM NEGATIVE NEGATIVE - XR CHEST 2 [id number] 11:54:00 FAX: Sudarshan Narayanan III [phone] [place]: O St: REG Name: WALLACE MICHEL [facility] : [birth year] Age/S: 43/F [address] [facility] Unit #: [id number] Loc: [place] [address] Phys: Sudarshan Barron III, ph, MD Acct: [id number] Dis Date: Status: REG CLI PHONE #: [phone] Exam Date: 11/15/2018 1149 FAX #: [phone] Reason: Z01.818 EXAMS: CPT CODE: [id number] XR CHEST 2 V 85917 HISTORY: Z01.818. CO MPARISON: Chest x-ray from July 23, 2018. AP and lateral view of the chest: No acute infiltrates, effusion or congestion. Cardiac and the mediastinal silhouette are normal. IMPRESSION: No acute infiltrates, effusion or congestion. Electr onically Signed by Anthony Silva on 11/15/2018 at 1154 Reported and signed by: Flaquito Silva M.D. CC: Sudarshan Scott III, MD Technologist: [facility] er, RT(R) Trnscrd Date/Time/By: 11/15/2018 (3410 ) : By: [email or web address] Orig Print D/T: S: 11/15/2018 (6875) PAGE 1 Signed Report
[2019-03-17] MEDS ORDERED: IBUPROFEN 600 MG TAB PO STA ×2 (22:17)
[2019-03-17] MEDS ORDERED: IBUPROFEN 200 MG TAB PO SCH (22:30)
[2019-03-17 22:37] LABS: BILIRUBIN,URINE SMALL (NEGATIVE); CLARITY,URINE CLOUDY (CLEAR); COLOR,URINE YELLOW (YELLOW); KETONES,URINE TRACE (NEGATIVE); LEUKOCYTE ESTERASE ,URINE MODERATE (NEGATIVE); NITRITE,URINE NEGATIVE (NEGATIVE); PROTEIN,URINE DIPSTICK TRACE (NEGATIVE); URINE UROBILINOGEN 0.2 mg/dL (0.2 - 1)
[2019-03-17 22:51] LABS: BACTERIA,URINE MANY /HPF; EPITHELIAL CELLS,URINE MODERATE /LPF; RENAL EPITHELIAL CELLS,URINE FEW; TRANSITIONAL EPI CELLS,URINE FEW; WBC,URINE (MAN) >50 /HPF (0-5)
[2019-03-17] MEDS ORDERED: LIDOCAINE HCL 1% LOCAL INJ 20 ML VIAL ONE (22:58)
[2019-03-17] MEDS ORDERED: CEFTRIAXONE SOD 1 GM VIAL IM ONE (23:00)
== END 2019-03-17 23:42 | disposition home or self-care (01) ==
LOC: ER 22:01
DX: R30.0 Dysuria (principal); R11.0 Nausea; N10 Acute pyelonephritis; I10 Essential (primary) hypertension; E78.5 Hyperlipidemia, unspecified
CPT/HCPCS: 81001; 87086; 99283; J0696; J2001

== ENCOUNTER → 2019-09-22 | Outpatient (CLI) | payer OTHER ==
[~2019-09-22] MED LIST: ACETAMINOPHEN325 M1 PO; ASPIR 8181 MG PO; FAMOTIDINE20 MG PO; METOPROLOL SUCC25 MG PO; NITROSTAT0.4 MG SL; VITAMIN C500 M4 PO; folic acid PO
--- NOTE | 2019-10-05 10:19 | Diagnostic Imaging Report ---
#[id number] - [id number] #BILATERAL DIGITAL SCREENING MAMMOGRAM WITH CAD: 09/22/2019 CLINICAL: Routine screening. Comparison is made to exams dated: 02/23/2017 mammogram and 01/24/2013 mammogram - [facility]. Current study contains 4 films. There are scattered fibroglandular elements in both breasts. Current study was also evaluated with a Computer Aided Detection (CAD) system. Benign appearing calcifications are noted bilaterally. There is a benign node in the right breast. No significant masses, calcifications, or other findings are seen in either breast. IMPRESSION: BENIGN There is no mammographic evidence of malignancy. A 1 year screening mammogram is recommended. The patient will be notified by letter of the results. HERNAN DOMINGO M.D. ct/penrad:10/04/2019 12:19:46 Rn Complex Care: Laura GRIDER)(Malachi), [facility] letter sent: Normal Exam Mammogram BI-RADS: 2 Benign
== END ==
LOC: MAMMO 10:35
PROVIDERS: ATTEND Internal Medicine Gastroenterology
DX: R63.4 Abnormal weight loss (principal)
CPT/HCPCS: 77067

== ENCOUNTER → 2019-12-11 | Emergency (ER) | payer OTHER ==
[~2019-12-11] MED LIST changes: +ATORVASTATIN CA80 MG PO; +BRILINTA90 MG PO; +CALCIUM + VITA1 EACH PO; +DULOXETINE HCL30 MG PO; +FERROUS SULFAT325 MG PO; +LOVASTATIN10 MG PO; +LYRICA75 MG PO; +ONDANSETRON HCL INJ 2MG/ML 2ML 2 MG/ML VIAL IV STA; +PANTOPRAZOLE SO40 MG PO; +SODIUM CHLORIDE 0.9% 1000ML 1,000 ML IV STA
--- NOTE | 2019-12-11 14:03 | NUR ---
Multiple attempts made to insert piv per nursing staff, blood specimens obtained and sent. Patient currently drinking oral contrast for CT scan.
[2019-12-11 14:13] LABS: BILIRUBIN,URINE NEGATIVE (NEGATIVE); CLARITY,URINE CLEAR (CLEAR); COLOR,URINE YELLOW (YELLOW); KETONES,URINE NEGATIVE (NEGATIVE); LEUKOCYTE ESTERASE ,URINE NEGATIVE (NEGATIVE); NITRITE,URINE NEGATIVE (NEGATIVE); PREGNANCY TEST, URINE NEGATIVE (NEGATIVE); PROTEIN,URINE DIPSTICK NEGATIVE (NEGATIVE); URINE UROBILINOGEN 0.2 mg/dL (0.2 - 1)
[2019-12-11 14:22] LABS: BASOPHILS % 0.2 % (0.0-1.0); EOSINOPHILS # (AUTO) 0.1 (0.0-0.4); EOSINOPHILS % 1.9 % (0.0-6.0); HEMATOCRIT 33.5 % (34.2-44.1); HEMOGLOBIN 10.2 g/dL (12.0-16.0); LYMPHOCYTES # (AUTO) 0.6 (1.0-3.2); MEAN CORPUSCULAR HEMOGLOBIN 26.9 pg (28-32); MEAN CORPUSCULAR HGB CONC 30.4 g/dL (31-35); MEAN CORPUSCULAR VOLUME 88.4 fL (81-99); MONOCYTES # (AUTO) 0.1 (0.2-0.8); MONOCYTES % 1.7 % (4.4-11.3); NEUTROPHILS # (AUTO) 5.4 (2.1-6.9); NEUTROPHILS % 85.9 % (38.7-80.0); PLATELET COUNT 459 x10e3/uL (140-360); RED BLOOD COUNT 3.79 x10e6/uL (3.6-5.1); RED CELL DISTRIBUTION WIDTH 15.5 % (11.7-14.4)
[2019-12-11 14:32] LABS: INR 0.93
[2019-12-11 14:33] LABS: PARTIAL THROMBOPLASTIN TIME 25.8 seconds (23.8-35.5)
[2019-12-11 14:45] LABS: ALANINE AMINOTRANSFERASE 16 IU/L (0-55); ALBUMIN 3.4 g/dL (3.5-5.0); ALBUMIN/GLOBULIN RATIO 0.7 (0.8-2.0); ALKALINE PHOSPHATASE 122 IU/L (40-150); AMYLASE 50 U/L (25-125); ANION GAP 15.2 mmol/L (8-16); BLOOD UREA NITROGEN 12 mg/dL (7-26); BUN/CREATININE RATIO 17 (6-25); CARBON DIOXIDE 19 mmol/L (22-29); CHLORIDE 107 mmol/L (98-107); CREATINE KINASE 11 IU/L (29-168); CREATININE, SERUM 0.69 mg/dL (0.57-1.11); EST GLOMERULAR FILTRATION RATE > 60 ML/MIN (60-); GLUCOSE 75 mg/dL (74-118); LIPASE 8 U/L (8-78); POTASSIUM 4.2 mmol/L (3.5-5.1); SODIUM 137 mmol/L (136-145)
[2019-12-11 15:05] LABS: BACTERIA,URINE MODERATE /HPF; EPITHELIAL CELLS,URINE FEW /LPF
--- NOTE | 2019-12-11 15:08 | Diagnostic Imaging Report ---
Examination: Single AP view of the chest. COMPARISON: None. INDICATION: Upper abdominal pain DISCUSSION: Lines/tubes: None. Lungs: The lungs are well inflated and clear. No pneumonia or pulmonary edema. Pleura: No pleural effusion or pneumothorax. Heart and mediastinum: The heart and the mediastinum are unremarkable. Bones and soft tissues: No acute bony abnormalities. IMPRESSION: 1. No acute cardiopulmonary abnormalities. Signed by: Dr. Babar Carvajal M.D. on 12/11/2019 3:06 PM
[2019-12-11 16:11] VITALS: BP 128/78
== END | disposition home or self-care (01) ==
LOC: ER 12:53
DX: R10.13 Epigastric pain (principal); R10.84 Generalized abdominal pain
CPT/HCPCS: 36415; 71045; 80053; 81001; 81025; 82150; 82550; 82553; 83690; 84484; 85025; 85610; 85730; 99284; J2405; J7030

== ENCOUNTER → 2020-07-11 | Outpatient (CLI) | payer OTHER ==
[~2020-07-11] MED LIST changes: +HUMIRA40 MG/0.8 SC; -ONDANSETRON HCL INJ 2MG/ML 2ML 2 MG/ML VIAL IV STA; -SODIUM CHLORIDE 0.9% 1000ML 1,000 ML IV STA
[2020-07-12 09:47] LABS: BASOPHILS % 0.3 % (0.0-1.0); EOSINOPHILS # (AUTO) 0.3 (0.0-0.4); EOSINOPHILS % 7.4 % (0.0-6.0); HEMATOCRIT 36.9 % (34.2-44.1); HEMOGLOBIN 11.4 g/dL (12.0-16.0); LYMPHOCYTES # (AUTO) 1.1 (1.0-3.2); LYMPHOCYTES % 30.3 % (18.0-39.1); MEAN CORPUSCULAR HEMOGLOBIN 29.8 pg (28-32); MEAN CORPUSCULAR HGB CONC 30.9 g/dL (31-35); MEAN CORPUSCULAR VOLUME 96.6 fL (81-99); MONOCYTES # (AUTO) 0.2 (0.2-0.8); MONOCYTES % 4.9 % (4.4-11.3); NEUTROPHILS # (AUTO) 2.1 (2.1-6.9); NEUTROPHILS % 56.6 % (38.7-80.0); PLATELET COUNT 230 x10e3/uL (140-360); RED BLOOD COUNT 3.82 x10e6/uL (3.6-5.1)
== END ==
LOC: DX 14:26 → EDSTATUS 07-16 11:00
PROVIDERS: ATTEND Internal Medicine Gastroenterology
DX: Z12.11 Encounter for screening for malignant neoplasm of colon (principal); Z01.818 Encounter for other preprocedural examination
CPT/HCPCS: 36415; 85025

== ENCOUNTER → 2020-09-27 | Outpatient (CLI) | payer OTHER | LOC: MAMMO 09:43 | PROVIDERS: ATTEND Internal Medicine Gastroenterology | DX: Z12.31 Encounter for screening mammogram for malignant neoplasm of breast (principal) | CPT/HCPCS: 77067 ==

== ENCOUNTER 2022-12-08 01:30 | Emergency (ER) | payer OTHER ==
[~2022-12-08] VITALS: Ht 160 cm; Wt 65.3 kg
[2022-12-08] MEDS ORDERED: ONDANSETRON HCL INJ 2MG/ML 2ML 2 MG/ML VIAL IV STA ×2 (01:46→02:50)
[2022-12-08] MEDS ORDERED: SODIUM CHLORIDE 0.9% 1000ML 1,000 ML IV STA (01:46)
[2022-12-08 02:11] LABS: CLARITY,URINE CLEAR (CLEAR); COLOR,URINE STRAW (YELLOW); KETONES,URINE NEGATIVE (NEGATIVE); LEUKOCYTE ESTERASE ,URINE NEGATIVE (NEGATIVE); NITRITE,URINE NEGATIVE (NEGATIVE); PROTEIN,URINE DIPSTICK NEGATIVE (NEGATIVE); URINE UROBILINOGEN 0.2 mg/dL (0.2 - 1)
[2022-12-08 02:20] LABS: BACTERIA,URINE FEW /HPF; EPITHELIAL CELLS,URINE RARE /LPF; RBC,URINE 0-5 /HPF (0-5); WBC,URINE (MAN) 0-5 /HPF (0-5)
[2022-12-08 02:42] LABS: BASOPHILS % 0.6 % (0.0-1.0); EOSINOPHILS # (AUTO) 0.2 (0.0-0.4); EOSINOPHILS % 4.7 % (0.0-6.0); HEMATOCRIT 37.9 % (34.2-44.1); HEMOGLOBIN 12.3 g/dL (12.0-16.0); LYMPHOCYTES # (AUTO) 1.3 (1.0-3.2); LYMPHOCYTES % 39.4 % (18.0-39.1); MEAN CORPUSCULAR HEMOGLOBIN 31.4 pg (28-32); MEAN CORPUSCULAR HGB CONC 32.5 g/dL (31-35); MEAN CORPUSCULAR VOLUME 96.7 fL (81-99); MONOCYTES # (AUTO) 0.2 (0.2-0.8); MONOCYTES % 4.7 % (4.4-11.3); NEUTROPHILS # (AUTO) 1.7 (2.1-6.9); NEUTROPHILS % 50.3 % (38.7-80.0); PLATELET COUNT 228 x10e3/uL (140-360); RED BLOOD COUNT 3.92 x10e6/uL (3.6-5.1); RED CELL DISTRIBUTION WIDTH 13.9 % (11.7-14.4)
[2022-12-08] MEDS ORDERED: Morphine 4mg INJECTION 4 MG/ML INJ IV STA (02:50)
[2022-12-08 03:02] LABS: ALBUMIN 3.5 g/dL (3.5-5.0); ALBUMIN/GLOBULIN RATIO 0.7 (0.8-2.0); ANION GAP 12.5 mmol/L (8-16); CALCIUM 8.8 mg/dL (8.4-10.2); CREATININE, SERUM 0.84 mg/dL (0.57-1.11); POTASSIUM 3.5 mmol/L (3.5-5.1)
[2022-12-08] MEDS ORDERED: Morphine 4mg INJECTION 4 MG/ML INJ ONE (03:07)
[2022-12-08] MEDS ORDERED: IOPAMIDOL 370 MG/ML 100 ML INFUS..BTL INJ ONE (03:39)
[2022-12-08] MEDS ORDERED: ULTRAM 50MG50 MG PO (04:44)
== END 2022-12-08 04:54 | disposition home or self-care (01) ==
LOC: ER 01:43
DX: R10.30 Lower abdominal pain, unspecified (principal); R74.01 Elevation of levels of liver transaminase levels; I10 Essential (primary) hypertension; E78.5 Hyperlipidemia, unspecified; D64.9 Anemia, unspecified; M06.9 Rheumatoid arthritis, unspecified; I25.2 Old myocardial infarction
CPT/HCPCS: 36415; 74176; 80053; 81001; 82550; 82553; 83690; 84484; 85025; 93005; 99284; J2270; J2405; J7030; Q9967

== ENCOUNTER 2023-01-14 21:02 | Emergency (ER) | payer OTHER ==
[~2023-01-14] VITALS: Ht 160 cm; Wt 65.3 kg
[~2023-01-14 21:02] MED LIST changes: +ULTRAM 50MG50 MG PO
[2023-01-14 21:41] LABS: BASOPHILS % 0.3 % (0.0-1.0); EOSINOPHILS # (AUTO) 0.1 (0.0-0.4); EOSINOPHILS % 3.6 % (0.0-6.0); HEMATOCRIT 33.3 % (34.2-44.1); HEMOGLOBIN 11.1 g/dL (12.0-16.0); LYMPHOCYTES % 28.2 % (18.0-39.1); MEAN CORPUSCULAR HEMOGLOBIN 32.9 pg (28-32); MEAN CORPUSCULAR HGB CONC 33.3 g/dL (31-35); MEAN CORPUSCULAR VOLUME 98.8 fL (81-99); MONOCYTES # (AUTO) 0.2 (0.2-0.8); MONOCYTES % 5.9 % (4.4-11.3); NEUTROPHILS # (AUTO) 2.1 (2.1-6.9); NEUTROPHILS % 61.7 % (38.7-80.0); PLATELET COUNT 291 x10e3/uL (140-360); RED BLOOD COUNT 3.37 x10e6/uL (3.6-5.1); RED CELL DISTRIBUTION WIDTH 13.6 % (11.7-14.4)
[2023-01-14 21:45] LABS: AMPHETAMINES SCREEN,URINE NEGATIVE (NEGATIVE); BENZODIAZEPINES SCREEN,URINE NEGATIVE (NEGATIVE); CLARITY,URINE CLOUDY (CLEAR); COLOR,URINE YELLOW (YELLOW); KETONES,URINE NEGATIVE (NEGATIVE); LEUKOCYTE ESTERASE ,URINE NEGATIVE (NEGATIVE); NITRITE,URINE NEGATIVE (NEGATIVE); PHENCYCLIDINE SCREEN,URINE NEGATIVE (NEGATIVE); PROTEIN,URINE DIPSTICK NEGATIVE (NEGATIVE)
[2023-01-14] MEDS ORDERED: SODIUM CHLORIDE FLUSH 10 ML SYR IV PRN (21:45)
[2023-01-14 21:46] LABS: URINE UROBILINOGEN 0.2 mg/dL (0.2 - 1)
[2023-01-14 22:10] LABS: INR 0.9; PROTHROMBIN TIME 12.7 seconds (11.9-14.5)
[2023-01-14 22:11] LABS: PARTIAL THROMBOPLASTIN TIME 31.8 seconds (23.8-35.5)
[2023-01-14 22:19] LABS: ALBUMIN 2.7 g/dL (3.5-5.0); ALBUMIN/GLOBULIN RATIO 0.7 (0.8-2.0); ANION GAP 14.6 mmol/L (8-16); CALCIUM 8.2 mg/dL (8.4-10.2); CREATININE, SERUM 0.74 mg/dL (0.57-1.11); POTASSIUM 3.6 mmol/L (3.5-5.1)
[2023-01-14 22:26] LABS: HCG,QUANTITATIVE 3.48 mIU/mL (0-10)
[2023-01-15 02:35] VITALS: BP 133/88
== END 2023-01-15 02:30 | disposition home or self-care (01) ==
LOC: ER 21:10
DX: R20.2 Paresthesia of skin (principal); I10 Essential (primary) hypertension; E78.5 Hyperlipidemia, unspecified; I25.2 Old myocardial infarction
CPT/HCPCS: 36415; 70450; 71045; 80053; 80307; 81001; 84484; 84702; 85025; 85610; 85730; 93005; 99284

== ENCOUNTER 2023-01-22 10:54 | Emergency (ER) | payer OTHER ==
[~2023-01-22] VITALS: Ht 160 cm; Wt 65.3 kg
[2023-01-22] MEDS ORDERED: HYDROCODONE/APAP 10MG-325MG TAB PO ONE (11:15)
[2023-01-22] MEDS ORDERED: ONDANSETRON HCL 4 MG ORAL DISINTEGRATING TAB PO ONE (11:15)
[2023-01-22 11:36] LABS: CLARITY,URINE SL CLOUDY (CLEAR); COLOR,URINE YELLOW (YELLOW); KETONES,URINE NEGATIVE (NEGATIVE); LEUKOCYTE ESTERASE ,URINE MODERATE (NEGATIVE); NITRITE,URINE NEGATIVE (NEGATIVE); PROTEIN,URINE DIPSTICK NEGATIVE (NEGATIVE); URINE UROBILINOGEN 0.2 mg/dL (0.2 - 1)
[2023-01-22 11:42] LABS: WBC,URINE (MAN) 21-50 /HPF (0-5)
[2023-01-22 11:43] LABS: BACTERIA,URINE FEW /HPF; EPITHELIAL CELLS,URINE FEW /LPF; RBC,URINE 0-5 /HPF (0-5)
[2023-01-22] MEDS ORDERED: CEFUROXIME250 MG PO (12:01)
== END 2023-01-22 12:07 | disposition home or self-care (01) ==
LOC: ER 10:56
DX: R30.0 Dysuria (principal); N39.0 Urinary tract infection, site not specified; I10 Essential (primary) hypertension; E78.5 Hyperlipidemia, unspecified; D64.9 Anemia, unspecified; M06.9 Rheumatoid arthritis, unspecified; I25.2 Old myocardial infarction
CPT/HCPCS: 81001; 87086; 99283; Q0162

== ENCOUNTER 2023-09-13 12:29 | Observation (INO) | payer OTHER ==
[~2023-09-13] VITALS: Ht 152.4 cm; Wt 63.5 kg
[~2023-09-13 12:29] MED LIST changes: +ASCORBIC ACID500 MG PO; +B-121000 MC1 PO; +BENEFIBER1 EAC1 PO; +BENZONATATE100 MG PO; +CEFAZOLIN2 GM/100 M IV; +CEFUROXIME250 MG PO; +DOXYCYCLINE HY100 MG PO; +MIRALAX17 GM PO; +NAPROXEN250 MG PO; +ONDANSETRON ODT4 MG PO; +PREDNISONE20 MG PO
[2023-09-13 13:25] LABS: BASOPHILS % 0.5 % (0.0-1.0); EOSINOPHILS # (AUTO) 0.2 (0.0-0.4); EOSINOPHILS % 4.5 % (0.0-6.0); HEMATOCRIT 28.7 % (34.2-44.1); HEMOGLOBIN 9.2 g/dL (12.0-16.0); LYMPHOCYTES # (AUTO) 1.2 (1.0-3.2); LYMPHOCYTES % 27.8 % (18.0-39.1); MEAN CORPUSCULAR HGB CONC 32.1 g/dL (31-35); MEAN CORPUSCULAR VOLUME 102.9 fL (81-99); MONOCYTES # (AUTO) 0.4 (0.2-0.8); MONOCYTES % 9.9 % (4.4-11.3); NEUTROPHILS # (AUTO) 2.4 (2.1-6.9); NEUTROPHILS % 55.9 % (38.7-80.0); PLATELET COUNT 287 x10e3/uL (140-360); RED BLOOD COUNT 2.79 x10e6/uL (3.6-5.1); RED CELL DISTRIBUTION WIDTH 15.4 % (11.7-14.4); WHITE BLOOD COUNT 4.25 x10e3/uL (4.8-10.8)
[2023-09-13 13:30] LABS: INR 0.95; PROTHROMBIN TIME 12.9 seconds (11.9-14.5)
[2023-09-13 13:31] LABS: PARTIAL THROMBOPLASTIN TIME 30.9 seconds (23.8-35.5)
[2023-09-13 13:37] LABS: ANION GAP 14.4 mmol/L (8-16); CALCIUM 8.9 mg/dL (8.4-10.2); CREATININE, SERUM 0.73 mg/dL (0.57-1.11); POTASSIUM 3.4 mmol/L (3.5-5.1)
[2023-09-13] MEDS ORDERED: HEPARIN SOD (PORCINE) 5,000 UNIT/ML VIAL IV ONE (14:15)
[2023-09-13] MEDS ORDERED: SODIUM CHLORIDE 0.9% 100 ML ONE (14:38)
[2023-09-13] MEDS ORDERED: SODIUM CHLORIDE FLUSH 10 ML SYR INJ PRN (14:45)
[2023-09-13] MEDS ORDERED: ONDANSETRON HCL INJ 2MG/ML 2ML 2 MG/ML VIAL IV PRN (14:45)
[2023-09-13] MEDS ORDERED: CEFAZOLIN SODIUM 2 GM in SODIUM CHLORIDE 0.9% 100 ML IV SCH (15:00)
[2023-09-13] MEDS: HEPARIN 25,000 UNIT/D5W 250ML 1,000 UNIT in DEXTROSE 5% 250ML 250 ML IV SCH ×2 (15:30→17:22)
[2023-09-13 18:16] VITALS: BP 129/69; PULSE 68; RESP 16; TEMP 97.8; O2SAT 100
[2023-09-13 20:31] VITALS: BP 128/69; PULSE 68; RESP 18; TEMP 98.3; O2SAT 100
[2023-09-13 21:00] VITALS: BP 128/69; PULSE 68; RESP 18; TEMP 98.3; O2SAT 100
[2023-09-13] MEDS: CEFAZOLIN SODIUM 2 GM in SODIUM CHLORIDE 0.9% 100 ML IV SCH (21:18)
[2023-09-14] VITALS (7 sets, daily range): BP systolic 109–130; BP diastolic 67–82; PULSE 73–80; RESP 16–19; TEMP 98.5–98.7; O2SAT 97–100
[2023-09-14] MEDS ORDERED: ACETAMINOPHEN 325 MG TAB PO PRN (05:00)
[2023-09-14] MEDS ORDERED: HYDRALAZINE HCL 20 MG/ML VIAL IV PRN (05:00)
[2023-09-14] MEDS: CEFAZOLIN SODIUM 2 GM in SODIUM CHLORIDE 0.9% 100 ML IV SCH ×2 (05:17→14:00)
[2023-09-14 06:38] LABS: BASOPHILS % 0.5 % (0.0-1.0); EOSINOPHILS # (AUTO) 0.3 (0.0-0.4); EOSINOPHILS % 7.4 % (0.0-6.0); HEMATOCRIT 24.3 % (34.2-44.1); LYMPHOCYTES # (AUTO) 1.3 (1.0-3.2); LYMPHOCYTES % 33.3 % (18.0-39.1); MEAN CORPUSCULAR HEMOGLOBIN 33.3 pg (28-32); MEAN CORPUSCULAR HGB CONC 32.9 g/dL (31-35); MEAN CORPUSCULAR VOLUME 101.3 fL (81-99); MONOCYTES # (AUTO) 0.4 (0.2-0.8); MONOCYTES % 10.7 % (4.4-11.3); NEUTROPHILS # (AUTO) 1.9 (2.1-6.9); NEUTROPHILS % 46.4 % (38.7-80.0); PLATELET COUNT 230 x10e3/uL (140-360); RED CELL DISTRIBUTION WIDTH 15.5 % (11.7-14.4); WHITE BLOOD COUNT 4.03 x10e3/uL (4.8-10.8)
[2023-09-14 07:03] LABS: ALBUMIN 2.2 g/dL (3.5-5.0); ANION GAP 12.3 mmol/L (8-16); BILIRUBIN,TOTAL 0.3 mg/dL (0.2-1.2); CALCIUM 8.3 mg/dL (8.4-10.2); CREATININE, SERUM 0.73 mg/dL (0.57-1.11); POTASSIUM 3.3 mmol/L (3.5-5.1); TOTAL PROTEIN 6.7 g/dL (6.5-8.1)
[2023-09-14 07:04] LABS: ALBUMIN/GLOBULIN RATIO 0.5 (0.8-2.0)
[2023-09-14] MEDS ORDERED: PANTOPRAZOLE SOD 40 MG TABEC PO SCH (07:30)
[2023-09-14] MEDS ORDERED: DULOXETINE HCL 30 MG DELAYED RELEASE PO SCH (09:00)
[2023-09-14] MEDS ORDERED: OYST-CAL-D 500MG TABLET PO SCH (09:00)
[2023-09-14] MEDS ORDERED: CYANOCOBALAMIN 1,000 MCG TAB PO SCH (09:00)
[2023-09-14] MEDS ORDERED: PREGABALIN 75 MG CAP PO SCH (09:00)
[2023-09-14] MEDS: TICAGRELOR 90 MG TABLET PO SCH ×2 (09:18→16:12)
[2023-09-14] MEDS: FAMOTIDINE 20 MG TAB PO SCH ×2 (09:18→16:11)
[2023-09-14] MEDS ORDERED: POTASSIUM CHLORIDE 20 MEQ TAB CR PO ONE (09:45)
[2023-09-14] MEDS ORDERED: KCL 20 MEQ PACKET/ ORAL SOLN PO ONE (10:00)
[2023-09-14] MEDS ORDERED: HYDROCODON-ACE1 EAC9 PO (10:19)
[2023-09-14] MEDS ORDERED: HYDROCODONE/APAP 10MG-325MG TAB PO PRN (10:30)
[2023-09-14] MEDS ORDERED: ONDANSETRON HCL 4 MG ORAL DISINTEGRATING TAB PO PRN (11:30)
[2023-09-14] MEDS ORDERED: ONDANSETRON ODT4 MG PO (15:43)
[2023-09-14] MEDS ORDERED: APIXABAN 5 MG TABLET PO SCH (16:00)
[2023-09-14] MEDS ORDERED: APIXABAN 5 MG TABLET PO ONE (16:00)
[2023-09-14] MEDS ORDERED: ELIQUIS5 MG PO (16:02)
[2023-09-14] MEDS ORDERED: ATORVASTATIN 40 MG TAB PO SCH (21:00)
[2023-09-15] MEDS ORDERED: APIXABAN 5 MG TABLET PO SCH (09:00)
[2023-09-21] MEDS ORDERED: APIXABAN 5 MG TABLET PO SCH (17:00)
== END 2023-09-14 17:07 | disposition home or self-care (01) ==
LOC: ER 12:37 → ERHOLD 14:31 → MED/SURG3 18:15
PROVIDERS: ADMIT Internal Medicine; ATTEND Internal Medicine
DX: I82.621 Acute embolism and thrombosis of deep veins of right upper extremity (principal); R78.81 Bacteremia; B95.61 Methicillin susceptible Staphylococcus aureus infection as the cause of diseases classified elsewhere; E87.6 Hypokalemia; R53.81 Other malaise; D72.819 Decreased white blood cell count, unspecified; R19.7 Diarrhea, unspecified; I11.9 Hypertensive heart disease without heart failure; I25.2 Old myocardial infarction; I25.10 Atherosclerotic heart disease of native coronary artery without angina pectoris; Z95.5 Presence of coronary angioplasty implant and graft; K90.0 Celiac disease; K21.9 Gastro-esophageal reflux disease without esophagitis; E78.5 Hyperlipidemia, unspecified; M06.9 Rheumatoid arthritis, unspecified; M79.7 Fibromyalgia; D53.9 Nutritional anemia, unspecified; Z79.899 Other long term (current) drug therapy; Z79.1 Long term (current) use of non-steroidal anti-inflammatories (NSAID)
CPT/HCPCS: 36415 ×2; 36569; 71045; 74470; 80048; 80053; 82607; 82728; 82746; 82948 ×2; 83540; 84466; 85025 ×2; 85045; 85610; 85730 ×2; 93971; 94799; 96361; 99285; G0378 ×2; J1644; J7050 ×2; S0164; U0002

== ENCOUNTER 2024-12-14 10:05 | Emergency (ER) | payer OTHER ==
[~2024-12-14] VITALS: Ht 167.6 cm; Wt 70.3 kg
[~2024-12-14 10:05] MED LIST changes: +ASPIRIN EC81 MG PO; +AZITHROMYCIN250 MG PO; +B-1100 MG PO; +CYCLOBENZAPRINE10 MG PO; +ELIQUIS5 MG PO; +FIORICET 50-301 EACH PO; +HYDROCODON-ACE1 EAC9 PO; +PROCHLORPERAZIN10 MG PO; +QUESTRAN PACKET4 GM PO; +TOPAMAX25 MG PO; +VENTOLIN HFA18 GM INH
[2024-12-14] MEDS: KETOROLAC TROMETHAMINE 30 MG/ML VIAL IM STA (10:44)
[2024-12-14 10:45] VITALS: BP 123/79; PULSE 106
[2024-12-14] MEDS: METOPROLOL TARTRATE 25 MG TAB PO ONE (10:45)
[2024-12-14] MEDS: SODIUM CHLORIDE 0.9% 1000ML 1,000 ML IV STA (12:15)
[2024-12-14 13:07] VITALS: PULSE 80; RESP 16; TEMP 98.5; O2SAT 100
== END 2024-12-14 13:08 | disposition home or self-care (01) ==
LOC: ER 10:11
DX: M25.561 Pain in right knee (principal); G89.29 Other chronic pain; W01.0XXA Fall on same level from slipping, tripping and stumbling without subsequent striking against object, initial encounter; Y93.01 Activity, walking, marching and hiking; Y92.89 Other specified places as the place of occurrence of the external cause; I10 Essential (primary) hypertension; E78.5 Hyperlipidemia, unspecified; D64.9 Anemia, unspecified; K21.9 Gastro-esophageal reflux disease without esophagitis; I25.10 Atherosclerotic heart disease of native coronary artery without angina pectoris; Z96.651 Presence of right artificial knee joint; I25.2 Old myocardial infarction; Z95.5 Presence of coronary angioplasty implant and graft; Z86.73 Personal history of transient ischemic attack (TIA), and cerebral infarction without residual deficits; Z87.442 Personal history of urinary calculi
CPT/HCPCS: 72131; 73562; 73700; 99284; J1885; J7030

== ENCOUNTER 2025-03-02 19:54 | Emergency (ER) | payer OTHER ==
[~2025-03-02] VITALS: Ht 167.6 cm; Wt 70.3 kg
[2025-03-02 20:20] VITALS: TEMP 98.6
[2025-03-02 22:24] LABS: BASOPHILS % 0.4 % (0.0-1.0); EOSINOPHILS # (AUTO) 0.1 (0.0-0.4); EOSINOPHILS % 2.6 % (0.0-6.0); HEMATOCRIT 31.6 % (34.2-44.1); HEMOGLOBIN 9.8 g/dL (12.0-16.0); LYMPHOCYTES # (AUTO) 0.8 (1.0-3.2); LYMPHOCYTES % 16.7 % (18.0-39.1); MEAN CORPUSCULAR HEMOGLOBIN 29.6 pg (28-32); MEAN CORPUSCULAR VOLUME 95.5 fL (81-99); MONOCYTES # (AUTO) 0.3 (0.2-0.8); MONOCYTES % 5.1 % (4.4-11.3); NEUTROPHILS # (AUTO) 3.7 (2.1-6.9); NEUTROPHILS % 74.8 % (38.7-80.0); PLATELET COUNT 297 x10e3/uL (140-360); RED BLOOD COUNT 3.31 x10e6/uL (3.6-5.1); RED CELL DISTRIBUTION WIDTH 16.7 % (11.7-14.4); WHITE BLOOD COUNT 4.92 x10e3/uL (4.8-10.8)
[2025-03-02 22:49] LABS: ALBUMIN 3.6 g/dL (3.5-5.0); ALBUMIN/GLOBULIN RATIO 0.9 (0.8-2.0); ANION GAP 13.9 mmol/L (8-16); BILIRUBIN,TOTAL 0.2 mg/dL (0.2-1.2); CALCIUM 8.9 mg/dL (8.4-10.2); CREATININE, SERUM 0.94 mg/dL (0.57-1.11); POTASSIUM 3.9 mmol/L (3.5-5.1); TOTAL PROTEIN 7.4 g/dL (6.5-8.1)
[2025-03-03 00:12] VITALS: RESP 16
[2025-03-03] MEDS ORDERED: IOPAMIDOL 370 MG/ML 100 ML INFUS..BTL INJ ONE (01:04)
[2025-03-03 02:30] VITALS: PULSE 79
[2025-03-03] MEDS: ONDANSETRON HCL INJ 2MG/ML 2ML 2 MG/ML VIAL IV STA (02:57)
[2025-03-03] MEDS: Morphine 4mg INJECTION 4 MG/ML INJ IV ONE (02:58)
[2025-03-03 03:19] VITALS: BP 117/71; O2SAT 99
== END 2025-03-03 03:15 | disposition other institution (70) ==
LOC: ER 21:11
DX: M24.29 Disorder of ligament, other specified site (principal); H53.2 Diplopia; R51.9 Headache, unspecified; R42 Dizziness and giddiness; W01.0XXA Fall on same level from slipping, tripping and stumbling without subsequent striking against object, initial encounter; Y93.01 Activity, walking, marching and hiking; Y92.89 Other specified places as the place of occurrence of the external cause; I10 Essential (primary) hypertension; E78.5 Hyperlipidemia, unspecified; D64.9 Anemia, unspecified; K21.9 Gastro-esophageal reflux disease without esophagitis; I25.10 Atherosclerotic heart disease of native coronary artery without angina pectoris; R94.31 Abnormal electrocardiogram [ECG] [EKG]; I25.2 Old myocardial infarction; Z95.5 Presence of coronary angioplasty implant and graft; Z86.73 Personal history of transient ischemic attack (TIA), and cerebral infarction without residual deficits
CPT/HCPCS: 36415; 70450; 70496; 70498; 72125; 80053; 84484; 85025; 93005; 99284; J2270; J2405; Q9967